=== PATIENT | male | born 1975 | race Caucasian/White ===

== ENCOUNTER 2020-01-24 06:29 | Outpatient (REF) | payer BC, SELFPAY ==
[2020-01-24 12:06] LABS: Alanine Aminotransferase 16 U/L (0-40); Albumin Level 4.7 g/dL (3.5-5.0); Alkaline Phosphatase 64 U/L (39-117); Anion Gap 11 (12-20); Aspartate Amino Transferase 17 U/L (5-37); Bilirubin Total 0.5 mg/dL (0.0-1.0); Blood Urea Nitrogen 18 mg/dL (9-16); Calcium 9.2 mg/dL (8.4-10.2); Carbon Dioxide 25 mmol/L (22-29); Chloride 106 mmol/L (96-108); Cholesterol 160 mg/dL; Estimated Glomerular Filt Rate > 60; Glucose Fasting 97 mg/dL (60-99); HDL Cholesterol 48 mg/dL; LDL Cholesterol Calculated 94 mg/dl; Potassium 5.1 mmol/l (3.3-5.1); Sodium 137 mmol/L (135-145); Total Protein 7.2 g/dL (6.5-8.0); Triglycerides 94 mg/dL
[2020-01-24 12:12] LABS: Free T4 (Free Thyroxine) 1.32 ng/dL (0.71-1.85); Thyroid Stimulating Hormone 0.91 mIU/mL (0.32-4.0)
[2020-01-24 12:13] LABS: Glucose Urine UA NEG (NEG); Leukocyte Esterase Urine NEG (NEG); Nitrite Urine NEG (NEG); Specific Gravity - Urine 1.015 (1.005-1.025); Urine Blood NEG (NEG); Urine Ketones NEG (NEG); Urine Protein NEG (NEG-TRACE)
[2020-01-24 12:32] LABS: Appearance Urine CLEAR; Color Urine YELLOW
== END 2020-01-24 06:30 | disposition home or self-care (01) ==
LOC: HO.HMGCLDS 06:29
PROVIDERS: PCP Internal Medicine; Visit Provider Internal Medicine
DX: E03.9 Hypothyroidism, unspecified (principal)
CPT/HCPCS: 36415; 80053; 80061; 81003; 84439; 84443

== ENCOUNTER 2020-03-03 15:59 | Outpatient (REF) | payer BC, SELFPAY ==
--- NOTE | 2020-03-03 16:06 | US_ITS ---
EXAMINATION: US VENOUS ULTRASOUND WITH DOPPLER LOWER EXTREMITY, RIGHT CLINICAL INFORMATION: Pain COMPARISON: None TECHNIQUE: Ultrasound of the deep veins is performed from the hip to the calf with compression sonography and color and pulse Doppler assessment. Spectral analysis with color-flow imaging is performed. FINDINGS: There is normal venous compression and respiratory variation and augmented flow. The visualized common femoral vein, superficial femoral vein, profunda femoral vein, popliteal vein, and the trifurcation region shows no evidence of deep venous thrombosis. There is no significant popliteal fossa cyst. US/US venous duplex LE RT IMPRESSION: No DVT demonstrated in the right lower extremity.
== END 2020-03-03 16:00 | disposition home or self-care (01) ==
LOC: HO.US 15:59
PROVIDERS: PCP Internal Medicine; Visit Provider Internal Medicine
DX: M79.661 Pain in right lower leg (principal)
CPT/HCPCS: 93971

== ENCOUNTER 2021-01-31 06:01 | Outpatient (REF) | payer BC, SELFPAY ==
[2021-01-31 11:34] LABS: Appearance Urine CLEAR; Color Urine YELLOW; Glucose Urine UA NEG (NEG); Leukocyte Esterase Urine NEG (NEG); Nitrite Urine NEG (NEG); Urine Blood NEG (NEG); Urine Ketones NEG (NEG); Urine Protein NEG (NEG-TRACE)
[2021-01-31 11:39] LABS: MANUAL DIFF FLAG NO
[2021-01-31 11:47] LABS: Basophils Percent Auto 0.7 % (0-2); Eosinophils Absolute Auto 0.1 X10*3/uL (0.0-0.4); Eosinophils Percent Auto 2.3 % (0-4); Hematocrit 42.3 % (42-52); Hemoglobin 14.3 g/dl (14.0-18.0); Imm Gran Abs Auto 0.01 X10*3/uL (0.00-0.03); Imm Gran Pct Auto 0.2 % (0.0-0.4); Lymphocytes Absolute Auto 1.7 X10*3/uL (1.2-4.9); Lymphocytes Percent Auto 39.4 % (20-40); Mean Corpuscular HGB Conc 33.8 g/dl (31.0-36.0); Mean Corpuscular Hemoglobin 30.1 pg (27.0-33.0); Mean Corpuscular Volume 89.1 fL (80-98); Mean Platelet Volume 10.2 fL (9.4-12.4); Monocytes Absolute Auto 0.4 X10*3/uL (0.1-1.2); Monocytes Percent Auto 9.5 % (2-11); Neutrophils Absolute Auto 2.1 X10*3/uL (2.0-8.3); Neutrophils Percent Auto 47.9 % (45-73); Platelet Count 221 X10*3/uL (160-400); Red Blood Count 4.75 X10*6/uL (4.60-5.80); Red Cell Distribution Width 12.3 % (11.0-16.0); White Blood Count 4.4 X10*3/uL (4.8-10.8)
[2021-01-31 11:57] LABS: Alanine Aminotransferase 15 U/L (0-40); Albumin Level 4.6 g/dL (3.5-5.0); Alkaline Phosphatase 55 U/L (39-117); Anion Gap 12 (12-20); Aspartate Amino Transferase 15 U/L (5-37); Bilirubin Total 0.5 mg/dL (0.0-1.0); Blood Urea Nitrogen 15 mg/dL (9-16); Calcium 9.8 mg/dL (8.4-10.2); Carbon Dioxide 27 mmol/L (22-29); Chloride 106 mmol/L (96-108); Cholesterol 177 mg/dL; Estimated Glomerular Filt Rate > 60; Glucose Fasting 100 mg/dL (60-99); HDL Cholesterol 45 mg/dL; LDL Cholesterol Calculated 114 mg/dl; Potassium 4.9 mmol/L (3.3-5.1); Sodium 140 mmol/L (135-145); Total Protein 7.2 g/dL (6.5-8.0); Triglycerides 93 mg/dL
[2021-01-31 12:18] LABS: Thyroid Stimulating Hormone 1.19 uIU/mL (0.32-4.0)
== END 2021-01-31 06:02 | disposition home or self-care (01) ==
LOC: HO.HMGCLDS 06:01
PROVIDERS: PCP Internal Medicine; Visit Provider Internal Medicine
DX: Z00.00 Encounter for general adult medical examination without abnormal findings (principal); E03.9 Hypothyroidism, unspecified; I10 Essential (primary) hypertension
CPT/HCPCS: 36415; 80053; 80061; 81003; 84443; 85025

== ENCOUNTER 2021-05-08 14:10 | Outpatient (REF) | payer BC, SELFPAY ==
[2021-05-08 16:41] LABS: Appearance Urine CLEAR; Color Urine YELLOW; Glucose Urine UA NEG (NEG); Leukocyte Esterase Urine NEG (NEG); Nitrite Urine NEG (NEG); Urine Blood NEG (NEG); Urine Ketones NEG (NEG); Urine Protein NEG (NEG-TRACE)
[2021-05-08 16:47] LABS: RBC Urine 0 /HPF (0); Squamous Epithelial Cell Urine TRACE /LPF; WBC Urine 0 /HPF (0-4)
[2021-05-08 16:48] LABS: Mucus Urine TRACE /LPF
[2021-05-08 16:53] LABS: Anion Gap 13 (12-20); Blood Urea Nitrogen 19 mg/dL (9-16); Calcium 9.9 mg/dL (8.4-10.2); Carbon Dioxide 25 mmol/L (22-29); Chloride 107 mmol/L (96-108); Estimated Glomerular Filt Rate > 60; Glucose Random 86 mg/dL (60-115); Potassium 4.9 mmol/L (3.3-5.1); Sodium 140 mmol/L (135-145)
[2021-05-08 17:15] LABS: Prostate Specific Antigen Scr 1.15 ng/mL (<0.05-4.0)
== END 2021-05-08 14:11 | disposition home or self-care (01) ==
LOC: HO.HMGCLDS 14:10
PROVIDERS: PCP Internal Medicine; Visit Provider Internal Medicine
DX: Z12.5 Encounter for screening for malignant neoplasm of prostate (principal); R35.0 Frequency of micturition; E03.9 Hypothyroidism, unspecified; I10 Essential (primary) hypertension
CPT/HCPCS: 36415; 80048; 81001; 84153

== ENCOUNTER 2021-05-08 14:51 | Outpatient (REF) | payer BC, SELFPAY | END 2021-05-08 14:52 | disposition home or self-care (01) | LOC: HO.US 14:51 | PROVIDERS: PCP Internal Medicine; Visit Provider Internal Medicine | DX: Z13.89 Encounter for screening for other disorder (principal) ==

== ENCOUNTER 2021-07-30 09:37 | Outpatient (REF) | payer BC, SELFPAY ==
--- NOTE | ~2021-07-30 | XR_ITS ---
EXAMINATION: RIGHT WRIST X-RAY CLINICAL INFORMATION: Sprain COMPARISON: None TECHNIQUE: 4 views of the right wrist FINDINGS: Bone alignment is normal. No fracture or dislocation is seen. Joint spaces are normal. Soft tissues are normal. XR/XR wrist RT w scaphoid IMPRESSION: Unremarkable exam.
== END 2021-07-30 09:38 | disposition home or self-care (01) ==
LOC: HO.HMGCX 09:37
PROVIDERS: Visit Provider Internal Medicine
DX: S63.501D Unspecified sprain of right wrist, subsequent encounter (principal)
CPT/HCPCS: 73110

== ENCOUNTER 2021-08-08 09:15 | Outpatient (REF) | payer BC, SELFPAY ==
--- NOTE | ~2021-08-08 | US_ITS ---
EXAMINATION: US PELVIS LIMITED (BLADDER) CLINICAL INFORMATION: Increased frequency of micturition, rule out urinary retention. COMPARISON: None TECHNIQUE: Real-time imaging of the bladder. FINDINGS: BLADDER: Well distended and normal. Bilateral ureteral jets are demonstrated. Prevoid bladder volume is 683 mL. Postvoid bladder volume is 232 mL. PROSTATE: 32 mL. US/US bladder IMPRESSION: 1. Moderate post void residual volume in the urinary bladder without focal abnormality. 2. Mild prostatomegaly.
== END 2021-08-08 09:16 | disposition home or self-care (01) ==
LOC: HO.HMGCX 09:15
PROVIDERS: PCP Internal Medicine; Visit Provider Internal Medicine
DX: R35.0 Frequency of micturition (principal)
CPT/HCPCS: 76857

== ENCOUNTER 2022-05-28 06:01 | Outpatient (REF) | payer BC, SELFPAY ==
[2022-05-28 11:27] LABS: MANUAL DIFF FLAG NO
[2022-05-28 11:37] LABS: Basophils Percent Auto 0.5 % (0-2); Eosinophils Absolute Auto 0.1 X10*3/uL (0.0-0.4); Eosinophils Percent Auto 2.4 % (0-4); Hematocrit 43.9 % (42.0-52.0); Hemoglobin 14.7 g/dl (14.0-18.0); Imm Gran Abs Auto 0.01 X10*3/uL (0.00-0.03); Imm Gran Pct Auto 0.2 % (0.0-0.4); Lymphocytes Absolute Auto 1.6 X10*3/uL (1.2-4.9); Mean Corpuscular HGB Conc 33.5 g/dl (31.0-36.0); Mean Corpuscular Hemoglobin 30.1 pg (27.0-33.0); Mean Corpuscular Volume 89.8 fL (80.0-98.0); Mean Platelet Volume 10.1 fL (9.4-12.4); Monocytes Absolute Auto 0.5 X10*3/uL (0.1-1.2); Neutrophils Percent Auto 46.9 % (45-73); Platelet Count 227 X10*3/uL (160-400); Red Blood Count 4.89 X10*6/uL (4.60-5.80); Red Cell Distribution Width 11.9 % (11.0-16.0); White Blood Count 4.2 X10*3/uL (4.8-10.8)
[2022-05-28 12:09] LABS: Alanine Aminotransferase 17 U/L (0-40); Albumin Level 4.6 g/dL (3.5-5.0); Alkaline Phosphatase 58 U/L (39-117); Anion Gap 17 (12-20); Aspartate Amino Transferase 16 U/L (5-37); Bilirubin Total 0.8 mg/dL (0.0-1.0); Blood Urea Nitrogen 16 mg/dL (9-16); Calcium 9.8 mg/dL (8.4-10.2); Carbon Dioxide 22 mmol/L (22-29); Chloride 106 mmol/L (96-108); Cholesterol 191 mg/dL; Estimated Glomerular Filt Rate > 60; Glucose Fasting 107 mg/dL (60-99); HDL Cholesterol 49 mg/dL; LDL Cholesterol Calculated 120 mg/dl; Potassium 4.5 mmol/L (3.3-5.1); Sodium 140 mmol/L (135-145); TSH reflex Free T4 0.01 uIU/mL (0.32-4.0); Total Protein 7.2 g/dL (6.5-8.0); Triglycerides 110 mg/dL
[2022-05-28 12:53] LABS: Free T4 (Free Thyroxine) 1.57 ng/dL (0.71-1.85)
== END 2022-05-28 06:02 | disposition home or self-care (01) ==
LOC: HO.HMGCLDS 06:01
PROVIDERS: PCP Internal Medicine; Visit Provider Internal Medicine
DX: Z00.00 Encounter for general adult medical examination without abnormal findings (principal); I10 Essential (primary) hypertension; E03.9 Hypothyroidism, unspecified
CPT/HCPCS: 36415; 80053; 80061; 84439; 84443; 85025

== ENCOUNTER → 2022-07-18 10:24 | Outpatient (BNVA) | payer BC, SELFPAY | PROVIDERS: PCP Internal Medicine; Visit Provider Urology | DX: N52.9 Male erectile dysfunction, unspecified (principal) | CPT/HCPCS: 51798 ==

== ENCOUNTER 2022-08-07 10:41 | Outpatient (REF) | payer BC, SELFPAY ==
[2022-08-07 15:32] LABS: TSH reflex Free T4 0.12 uIU/mL (0.32-4.0)
[2022-08-07 16:31] LABS: Free T4 (Free Thyroxine) 1.21 ng/dL (0.71-1.85)
== END 2022-08-07 10:42 | disposition home or self-care (01) ==
LOC: HO.HMGCLDS 10:41
PROVIDERS: PCP Internal Medicine; Visit Provider Internal Medicine
DX: E03.9 Hypothyroidism, unspecified (principal)
CPT/HCPCS: 36415; 84439; 84443

== ENCOUNTER → 2022-09-20 08:27 | Outpatient (BNVA) | payer BC, SELFPAY | PROVIDERS: PCP Internal Medicine; Visit Provider Urology ==

== ENCOUNTER 2022-12-04 12:42 | Outpatient (REF) | payer BC, SELFPAY ==
[2022-12-04 16:41] LABS: TSH reflex Free T4 0.67 uIU/mL (0.32-4.0)
== END 2022-12-04 12:43 | disposition home or self-care (01) ==
LOC: HO.HMGCLDS 12:42
PROVIDERS: PCP Internal Medicine; Visit Provider Internal Medicine
DX: E03.9 Hypothyroidism, unspecified (principal)
CPT/HCPCS: 36415; 84443

== ENCOUNTER 2022-12-13 13:52 | Day surgery (SDC) | payer BC, SELFPAY ==
--- NOTE | 2022-12-12 09:38 | HO.ANESPROP2 ---
Documented by User: Carolina Barrow NP 12/12/22 09:44 HPI - Anesthesia Eval Consult details Narrative: 47yo M for Colonoscopy PMFSH Active Problems Active Problems: All Active Problems (Updated 06/18/22 @ 11:35 by Chichi Ngo MD) Erectile dysfunction (Acute) Urinary retention (Acute) Sprain of right wrist (Acute) Increased frequency of urination (Acute) Right calf pain (Acute) Annual physical exam (Acute) HTN (hypertension) (Acute) Hypothyroid (Acute) Past Medical History Medical History Annual physical exam GERD (gastroesophageal reflux disease) H/O exercise stress test Nadya's disease HTN (hypertension) Hypothyroid Increased frequency of urination Right calf pain Urinary retention Family History Family History Father No problems noted. Mother No problems noted. 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 Tobacco Use Status: Former Tobacco user e-Cigarette/Vaping Use: Never Used Are you DNR?: No Advance Directives: No Advance Directives Information Provided: Yes Nutrition Risks: No Nutritional Risk Current occupational status: employed Cognitive needs: No Hearing needs: No Vision needs: Yes Meds Allergies Allergy/AdvReac Type Severity Reaction Status Date / Time valsartan Allergy Unknown headache Verified 09/20/22 08:28 Home Medications Medication Instructions Recorded Confirmed Last Taken Type ibuprofen 200 mg tablet 200 mg PO Q6H PRN 10/24/21 06/18/22 Unknown History Exam Exam Date and Time: December 12, 2022 0938 Assessment and Plan Assessment Anesthesia Assessment: Chart Reviewed Documented by User: Angelica Bowens MD 12/13/22 14:35 PMFSH Past Medical History Medical History Annual physical exam GERD (gastroesophageal reflux disease) H/O exercise stress test Nadya's disease HTN (hypertension) Hypothyroid Increased frequency of urination Right calf pain Urinary retention Family History Family History Father No problems noted. Mother No problems noted. 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 Tobacco Use Status: Former Tobacco user e-Cigarette/Vaping Use: Never Used Are you DNR?: No Advance Directives: No Advance Directives Information Provided: Yes Nutrition Risks: No Nutritional Risk Current occupational status: employed Cognitive needs: No Hearing needs: No Vision needs: Yes Meds Allergies Allergy/AdvReac Type Severity Reaction Status Date / Time valsartan Allergy Unknown headache Verified 09/20/22 08:28 Home Medications Medication Instructions Recorded Confirmed Last Taken Type ibuprofen 200 mg tablet 200 mg PO Q6H PRN 10/24/21 06/18/22 Unknown History Exam Airway Mallampati Class: II TM Dist: >3cm Neck ROM: Full Heart: rrr Lungs: cta Assessment and Plan Assessment Anesthesia Assessment: Anesthesia Plan Discussed Final Anesthetic Review Family History of Problems with Anesthesia: No History of Problems with Anesthesia: No NPO: Yes ASA Class: II Final Preanesthetic Review: No Changes in Pt Med Stat, Meds/Allgs Chart Reviewed and Consent Obtained/Reviewed Patient Risk: Intermediate Procedure Risk: Intermediate Anesthetic Plan Anesthetic Plan: MAC: Disposition: Standard PACU
[2022-12-13 14:13] VITALS: BMI 25.1
[2022-12-13 14:20] VITALS: BP 139/95; PULSE 61; RESP 20; TEMP 36.1; O2SAT 98
[2022-12-13] MEDS: Lactated Ringers 1,000 ML 100 ML IVCONT (14:39)
--- NOTE | 2022-12-13 15:39 | MHC.SHP ---
Pre-Procedural Eval Section A Date of Service: 12/13/22 The patient is an INPATIENT: No The History & Physical has been completed within 30 days and I have reviewed it.: No Section B Chief Complaint: Encounter for screening for malignant neoplasm Relevant Family History (Specify if Yes): Yes Relevant Social History: Tobacco Use (former smoker) Present Medications: see Short Stay Collaborative assessment Medical History: Significant History (Erectile dysfunction (Acute) Urinary retention (Acute) Sprain of right wrist (Acute) Increased frequency of urination (Acute) Right calf pain (Acute) Annual physical exam (Acute) HTN (hypertension) (Acute) Hypothyroid (Acute)) History of Previous Operations: Relevant previous surgery/procedure and date(s) (History of fracture of femur History of open reduction and internal fixation (ORIF) procedure) Allergies: Allergies Allergy/AdvReac Type Severity Reaction Status Date / Time valsartan Allergy Unknown headache Verified 09/20/22 08:28 Review of Systems Sugical H&P ROS: Negative: Constitution, Cardiovascular, Respiratory and Gastrointestinal and Yes, Specify: Endocrine (Thyroid disease) Exam Surgical H&P Exam: Normal: Heart, Normal: Lungs, Normal: Extremities and Normal: Abdomen Plan Diagnosis/Plan: Change (proceed with screening colonoscopy) I have reviewed the history and physical and performed a pertinent physical examination on my patient. No changes have occurred unless specified. Time Spent With Patient Time: Total time managing care of this patient today ____ minutes.
--- NOTE | 2022-12-13 16:23 | W.PM.OPN ---
Operative Note Operative Note Date of Service: 12/13/22 Narrative: COLONOSCOPY TILL CECUM WITH BIOPSIES Pre-op diagnosis: Colon cancer screening, family history of colon cancer (paternal GF in his 60's) Pt had an EGd and colon 15-16 years ago Post-op diagnosis:? Colon polyp, diverticulosis, hemorrhoids Endoscopist:? Mikaela Zhang MD Anesthesia:?MAC Consent: Indications for the procedure and potential complications of bleeding, perforation, reaction to medications and missed diagnosis were discussed with the patient and informed consent was obtained. Instrument: Olympus CF H 190 L variable stiffness adult colonoscope Monitoring: Vital signs and clinical assessment, intermittent blood pressure monitoring, continuous EKG monitoring, Pulse oximetry and Carbon Dioxide monitoring were done throughout the procedure. Please see anesthesia flowsheet. Colon withdrawl time was 24 minutes. Procedure: The patient was placed in the left lateral decubitis position and pre-procedure medications were administered. After a digital rectal examination of the ano-rectum, the video colonoscope was inserted into the rectum and advanced through the colon to the cecum. The colonoscope was slowly withdrawn in a retrograde panoramic fashion and the colon mucosa was carefully examined including a retroflexed view of the rectum. Findings and interventions are described below. Procedure Difficulty: Without difficulty Findings: Terminal Ileum: Not evaluated Cecum: Normal Ascending Colon: A 2-3 mm sessile polyp in the mid AC -removed with a cold biopsy Transverse Colon: Normal Descending Colon: Normal Sigmoid Colon: Moderate diverticulosis Rectum: Normal Ano-rectum: Moderate internal hemorrhoids Colon preparation: Good Impression and Post Procedure Diagnosis: Colonoscopy Findings: One tiny polyp removed Moderate diverticulosis seen in the sigmoid colon Moderate hemorrhoids on retroflexed exam. Plan: I will send a letter with pathology results Repeat Colonoscopy interval based on path results - in 5 years if polyps are adenomatous and 10 years if polyps are hyperplastic. Above findings were reviewed with the patient and colon polyps and diverticulosis handouts were given in the discharge area
[2022-12-13 17:09] VITALS: BP 118/62; PULSE 53; RESP 16; TEMP 36.1; O2SAT 99
[2022-12-13 17:24] VITALS: BP 128/77; PULSE 50; RESP 16; TEMP 36.4; O2SAT 99
== END 2022-12-13 17:53 | disposition home or self-care (01) ==
PROVIDERS: PCP Internal Medicine; Visit Provider Internal Medicine Gastroenterology
PROC: 0DJD8ZZ Inspection of Lower Intestinal Tract, Via Natural or Artificial Opening Endoscopic (ICD-10-PCS; CPT 45378; principal; 2022-12-13 15:30)
DX: Z12.11 Encounter for screening for malignant neoplasm of colon (principal); D12.2 Benign neoplasm of ascending colon; K57.30 Diverticulosis of large intestine without perforation or abscess without bleeding; K64.8 Other hemorrhoids; I10 Essential (primary) hypertension; E03.9 Hypothyroidism, unspecified; R33.9 Retention of urine, unspecified; R35.0 Frequency of micturition; Z88.8 Allergy status to other drugs, medicaments and biological substances; Z87.891 Personal history of nicotine dependence; Z79.1 Long term (current) use of non-steroidal anti-inflammatories (NSAID)
CPT/HCPCS: 45380; 88305

== ENCOUNTER → 2022-12-13 13:52 | Outpatient (BNV) | payer BC, SELFPAY | PROVIDERS: PCP Internal Medicine; Visit Provider Internal Medicine Gastroenterology | DX: Z12.11 Encounter for screening for malignant neoplasm of colon (principal); Z80.0 Family history of malignant neoplasm of digestive organs; D12.2 Benign neoplasm of ascending colon; K57.30 Diverticulosis of large intestine without perforation or abscess without bleeding; K64.8 Other hemorrhoids | CPT/HCPCS: 45380 ==

== ENCOUNTER 2023-02-01 09:07 | Outpatient (AMB) | payer BC, SELFPAY ==
[2023-02-01 09:30] VITALS: BP 124/74; PULSE 92; O2SAT 98
--- NOTE | 2023-02-01 09:30 | MHC.OFFWIV ---
Intake Vital Signs 02/01/23 09:30 Height 61 ft Weight 198 lb BMI 0.3 BP 124/74 Blood Pressure Location Lt brachial Position Sitting Pulse 92 Pulse Source Pulse Oximeter Pulse Oximetry (%) 98 Oxygen Delivery Method Room Air Intake Visit Reasons: EP-Left hip pain Intake Note: Patient is here with pain in left hip in frot and back, not getting better. Patient Tobacco Use Status: Former Tobacco user Allergies valsartan Allergy (Unknown, Verified 02/01/23 09:32) headache Do you need a note to return to daycare/school/sports/work: No HPI HPI Comments History of Present Illness Details This is a 47-year-old male who presents to the office today for sick visit. Patient complaining of persistent left hip pain x4 weeks. Patient states he does not remember specific trauma or injury but believes that he may have pulled a muscle or twisted wrong. He denies any numbness/weakness/paresthesias into his left lower extremity. He denies any radiation of his pain. He states the pain is mostly brought on with ambulation and moving. He does not experience any hip pain while sitting and resting. [facility] Medical History Urinary retention Increased frequency of urination Right calf pain Annual physical exam HTN (hypertension) Hypothyroid H/O exercise stress test GERD (gastroesophageal reflux disease) Nadya's disease Surgical History (Updated 12/13/22 @ 14:27 by Roula Salas RN) Hx of appendectomy Hx of esophagogastroduodenoscopy Hx of colonoscopy Family History Father No problems noted. Mother No problems noted. 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 Tobacco Use Status: Former Tobacco user e-Cigarette/Vaping Use: Never Used Current occupational status: employed Cognitive needs: No Hearing needs: No Vision needs: Yes Review of Systems Const All systems reviewed & are unremarkable except as noted in HPI and below Reports no additional complaints Eyes Reports no additional complaints ENT Reports no additional complaints Card Reports no additional complaints Resp Reports no additional complaints GI Reports no additional complaints Reports no additional complaints Musc Reports no additional complaints Skin/Breast Reports system reviewed and no additional complaints, except as documented Neuro Reports no additional complaints Psych Reports no additional complaints Endo Reports no additional complaints Eliecer/Lymph Reports no additional complaints Aller/Immun Reports no additional complaints Physical Exam Vital Signs: Last Vital Signs Pulse 92 02/01/23 09:30 BP 124/74 02/01/23 09:30 Pulse Ox 98 02/01/23 09:30 Oxygen Delivery Method Room Air 02/01/23 09:30 BMI result Body Mass Index 0.3 Const Other: Vital signs reviewed. Constitutional: Non-toxic appearing. No acute distress. Well-developed and well-nourished. HEENT: Normocephalic and atraumatic. Skin: Warm and dry. No rashes or lesions noted. Neck: Full and painless range of motion. No cervical lymphadenopathy. Cardio: Regular rate. No lower extremity edema. No JVD. Pulmonary: No respiratory distress. No accessory muscle usage. Gastrointestinal: Soft, nontender, and nondistended in all 4 quadrants. Musculoskeletal: Normal range of motion in joints throughout the body. No deformity or other signs of injury. Full and painless range of motion of the left hip. No tenderness to palpation of the left hip. Neuro: Alert and oriented x4. Cranial nerves 2-12 grossly intact. No focal deficits appreciated. Psych: Normal mood and affect. Assessment & Plan Assessment & Plan (1) Sprain of left hip: Code(s): S73.102A - Unspecified sprain of left hip, initial encounter Plan: This is a 47-year-old male presenting to the office complaining of persistent left hip pain x4 weeks. Patient does not remember specific trauma or injury but believes he may have pulled a muscle or twisted wrong. On physical examination, patient has no bony tenderness to palpation of the left hip and no pain with range of motion of the left hip. He states the pain is mostly brought on after several minutes of activity. He is currently asymptomatic without left hip pain. Patient very likely has a mild musculoskeletal sprain/strain of the left hip; very low suspicion for fracture or avulsion fracture but we will check a left hip x-ray given persistence of pain. Recommend rest/activity modification, ice/heat to the area, and continue with acetaminophen/ibuprofen for pain management as long as patient has no medical contraindications. Patient sent home on 5% lidocaine patches. He was given a physical therapy referral. Patient advised to follow-up here or go to the emergency room for persistent/worsening symptoms. Patient verbalized understanding and is agreeable with the plan. Orders: Orders XR hip LT min 2V Today M25.552 - Pain in left hip Coding Level of Care Code Est Pt Level 3 (77640) Diagnoses Sprain of left hip S73.102A
== END 2023-02-01 10:01 | disposition home or self-care (01) ==
PROVIDERS: PCP Internal Medicine; Visit Provider Physician Assistant Medical
DX: S73.102A Unspecified sprain of left hip, initial encounter (principal)
CPT/HCPCS: 99213

== ENCOUNTER 2023-02-01 09:49 | Outpatient (REF) | payer BC, SELFPAY ==
--- NOTE | ~2023-02-01 | XR_ITS ---
EXAMINATION: XR HIP, LEFT , CLINICAL INFORMATION: Pain COMPARISON: Prior study 2019 TECHNIQUE: 2 views frontal and oblique , FINDINGS: There is no evidence of acute fracture or dislocation. There are mild degenerative arthritic changes of the hip evident by sclerotic changes of the acetabular roof and narrowing of the joint space. Mild degenerative changes of the symphysis pubis. Mild degenerative changes of the SI joints. Adjacent pubic rami are intact. Surrounding soft tissues are unremarkable. XR/XR hip LT min 2V IMPRESSION: Mild degenerative arthritis. .
== END 2023-02-01 09:50 | disposition home or self-care (01) ==
LOC: HO.HMGCX 09:49
PROVIDERS: Visit Provider Physician Assistant Medical
DX: M25.552 Pain in left hip (principal)
CPT/HCPCS: 73502

== ENCOUNTER 2023-06-12 06:04 | Outpatient (REF) | payer BC, SELFPAY ==
[2023-06-12 11:18] LABS: MANUAL DIFF FLAG NO
[2023-06-12 11:37] LABS: Basophils Percent Auto 0.9 % (0-2); Eosinophils Absolute Auto 0.1 X10*3/uL (0.0-0.4); Eosinophils Percent Auto 2.3 % (0-4); Hematocrit 42.3 % (42.0-52.0); Hemoglobin 14.2 g/dl (14.0-18.0); Imm Gran Abs Auto 0.01 X10*3/uL (0.00-0.03); Imm Gran Pct Auto 0.3 % (0.0-0.4); Lymphocytes Absolute Auto 1.5 X10*3/uL (1.2-4.9); Lymphocytes Percent Auto 42.7 % (20-40); Mean Corpuscular HGB Conc 33.6 g/dl (31.0-36.0); Mean Corpuscular Hemoglobin 30.3 pg (27.0-33.0); Mean Corpuscular Volume 90.2 fL (80.0-98.0); Mean Platelet Volume 10.1 fL (9.4-12.4); Monocytes Absolute Auto 0.4 X10*3/uL (0.1-1.2); Monocytes Percent Auto 10.8 % (2-11); Neutrophils Absolute Auto 1.5 x10*3/uL (2.0-8.3); Platelet Count 192 X10*3/uL (160-400); Red Blood Count 4.69 X10*6/uL (4.60-5.80); Red Cell Distribution Width 12.4 % (11.0-16.0); White Blood Count 3.5 X10*3/uL (4.8-10.8)
[2023-06-12 12:04] LABS: Alanine Aminotransferase 17 U/L (0-40); Albumin Level 4.5 g/dL (3.5-5.0); Alkaline Phosphatase 52 U/L (39-117); Anion Gap 12 (12-20); Aspartate Amino Transferase 18 U/L (5-37); Bilirubin Total 0.6 mg/dL (0.0-1.0); Blood Urea Nitrogen 14 mg/dL (9-16); Calcium 9.6 mg/dL (8.4-10.2); Carbon Dioxide 25 mmol/L (22-29); Chloride 107 mmol/L (96-108); Cholesterol 188 mg/dL (<200); Estimated Glomerular Filt Rate > 60; Glucose Fasting 96 mg/dL (60-99); HDL Cholesterol 49 mg/dL (>40); LDL Cholesterol Calculated 122 mg/dL (<100); Potassium 4.4 mmol/L (3.3-5.1); Sodium 140 mmol/L (135-145); Total Protein 7.3 g/dL (6.5-8.0); Triglycerides 88 mg/dL (<150)
[2023-06-12 12:08] LABS: TSH reflex Free T4 1.24 uIU/mL (0.32-4.0)
== END 2023-06-12 06:05 | disposition home or self-care (01) ==
LOC: HO.HMGCLDS 06:04
PROVIDERS: PCP Internal Medicine; Visit Provider Internal Medicine
DX: Z00.00 Encounter for general adult medical examination without abnormal findings (principal); I10 Essential (primary) hypertension; E03.9 Hypothyroidism, unspecified
CPT/HCPCS: 36415; 80053; 80061; 84443; 85025

== ENCOUNTER 2023-06-19 11:20 | Outpatient (AMB) | payer BC, SELFPAY ==
--- NOTE | 2023-06-19 11:24 | MHC.PC.OV ---
Vital Signs 06/19/23 11:25 Height 6 ft Weight 201 lb BMI 27.3 BP 126/74 Blood Pressure Location Lt brachial Position Sitting Pulse 69 Pulse Source Pulse Oximeter Pulse Oximetry (%) 99 Oxygen Delivery Method Room Air Intake Visit Reasons: Annual PE Intake Note: Pt is here today for PE. Allergies valsartan Allergy (Unknown, Verified 06/19/23 11:26) headache Medication List - Last Reconciled 06/19/23 by Chichi Ngo MD amlodipine 10 mg PO DAILY ibuprofen 200 mg PO Q6H PRN levothyroxine 112 mcg PO DAILY tadalafil 5 mg PO DAILY 90 days Tobacco use date assessed: 06/19/23 Dental Screening Dental Screen Date: 06/19/23 Did you have a dental visit in the last 12 months?: Yes Did you have a dental problem in the last 6 months where you did not have access to dental care?: No Was dental information given to patient?: Patient has dentist HPI Annual PE HPI Details Patient presents for PE. PFSH Medical History Urinary retention Increased frequency of urination Right calf pain Annual physical exam HTN (hypertension) Hypothyroid H/O exercise stress test GERD (gastroesophageal reflux disease) Nadya's disease Surgical History (Updated 06/19/23 @ 12:20 by Chichi Ngo MD) Hx of appendectomy Hx of esophagogastroduodenoscopy Hx of colonoscopy Family History Father No problems noted. Mother No problems noted. 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 Tobacco Use Status: Former Tobacco user e-Cigarette/Vaping Use: Never Used Current occupational status: employed Cognitive needs: No Hearing needs: No Vision needs: Yes Questionnaire Thrive Questionnaire Date Thrive assessed: 06/18/22 I am a: Patient What is your living situation today?: I have a steady place to live Within the past 12 months, did the food you bought not last and you didn't have the money to get more?: Never true Within the past 12 months, did you worry whether your food would run out before you got money to buy more?: Never true THRIVE Score: 0 AUDIT C Alcohol Use Questionnaire (AUDIT-C) 1. How often do you have a drink containing alcohol?: 2-4 times a month 2. How many drinks containing alcohol do you have on a typical day when you are drinking?: 1 or 2 3. How often do you have six or more drinks on one occasion?: Never Total Score: 2 YIN-7 AMB Questionnaire YIN-7 Date YIN - 7 assessed: 06/18/22 Feeling nervous, anxious, or on edge: 1 = Several days Not being able to stop or control worryin = More than half the days Worrying too much about different things: 2 = More than half the days Trouble relaxin = Several days Being so restless that it is hard to sit still: 1 = Several days Becoming easily annoyed or irritable: 1 = Several days Feeling afraid as if something awful might happen: 1 = Several days Total YIN-7 score (0-4 normal; 5-9 mild; 10-14 moderate; 15-21 severe): 9 Source: Developed by Drs. Zeb Ledesma, Aicha Freeman, Jad Irving and colleagues, with an educational di from [employer]. Review of Systems Const All systems reviewed & are unremarkable except as noted in HPI and below Reports no additional complaints Eyes Reports no additional complaints ENT Reports no additional complaints Card Reports no additional complaints Resp Reports no additional complaints GI Reports no additional complaints Reports no additional complaints Physical exam (Primary Care) Vital Signs: Last Vital Signs Pulse 69 06/19/23 11:25 BP 126/74 06/19/23 11:25 Pulse Ox 99 06/19/23 11:25 Oxygen Delivery Method Room Air 06/19/23 11:25 BMI result Body Mass Index 27.3 Tobacco/Smoking Status: Tobacco use Status Tobacco use date assessed 06/19/23 06/19/23 11:29 Patient Tobacco Use Status Former Tobacco user 06/19/23 11:29 e-Cigarette/Vaping Use Never Used 06/19/23 11:29 Thrive Assessment: Date of Thrive Assessment Date Thrive assessed 06/18/22 06/19/23 11:29 Const General: no acute distress HENMT Head: Yes normal to inspection Ears: hearing grossly normal bilaterally General nose exam: Normal external nose present Face and sinus: Yes normal facial exam Mouth: Normal oral and palatal mucosa present Eyes General: appearance normal, both eyes and all related structures Neck Neck: Yes no lymphadenopathy and Yes supple Resp Effort & Inspection: normal respiratory effort Auscultation: clear to auscultation bilaterally Cardio Rhythm: regular rhythm Heart sounds: S1 normal heart sound present and S2 normal heart sound present GI Inspection: Yes normal to inspection Palpation (GI): Soft to palpation Percussion: Yes normal to percussion Auscultation: normal bowel sounds Assessment and Plan Assessment & Plan (1) Annual physical exam: Code(s): Z00.00 - Encounter for general adult medical examination without abnormal findings Plan: Well-balanced diet regular exercise discussed with the patient. He had colonoscopy last November and needs a repeat one in 5 years (2) HTN (hypertension): Code(s): I10 - Essential (primary) hypertension Plan: Continue amlodipine (3) Hypothyroid: Code(s): E03.9 - Hypothyroidism, unspecified Plan: Continue Levothyroxine (4) Hx of colonoscopy: Comment: 12/11 1 polyp tubular adenoma, recheck 5 yrs, Dr. Zhang Code(s): Z98.890 - Other specified postprocedural states Orders: Orders Lipid Panel 365 Days E03.9 - Hypothyroidism, unspecified, I10 - Essential (primary) hypertension, Z00.00 - Encounter for general adult medical examination without abnormal findings UA w Microscopic 365 Days E03.9 - Hypothyroidism, unspecified, I10 - Essential (primary) hypertension, Z00.00 - Encounter for general adult medical examination without abnormal findings Comprehensive [place]. Panel Fast 365 Days E03.9 - Hypothyroidism, unspecified, I10 - Essential (primary) hypertension, Z00.00 - Encounter for general adult medical examination without abnormal findings Complete Blood Count Auto Diff 365 Days E03.9 - Hypothyroidism, unspecified, I10 - Essential (primary) hypertension, Z00.00 - Encounter for general adult medical examination without abnormal findings PSA,Total (Free>4and<10) 365 Days E03.9 - Hypothyroidism, unspecified, I10 - Essential (primary) hypertension, Z00.00 - Encounter for general adult medical examination without abnormal findings Medications: Refilled levothyroxine 112 mcg PO DAILY 90 tabs 3RF Coding Level of Care Code Est Pt Prev Care 40-64y(29988) Diagnoses Annual physical exam Z00.00 HTN (hypertension) I10 Hypothyroid E03.9 Hx of colonoscopy Z98.890
[2023-06-19 11:25] VITALS: BP 126/74; PULSE 69; O2SAT 99; BMI 27.3
== END 2023-06-19 12:13 | disposition home or self-care (01) ==
PROVIDERS: PCP Internal Medicine; Visit Provider Internal Medicine
DX: Z00.00 Encounter for general adult medical examination without abnormal findings (principal); I10 Essential (primary) hypertension; E03.9 Hypothyroidism, unspecified; Z98.890 Other specified postprocedural states
CPT/HCPCS: 99396

== ENCOUNTER 2023-08-04 08:15 | Outpatient (AMB) | payer BC, SELFPAY ==
[2023-08-04 08:26] VITALS: BP 128/80; PULSE 64; TEMP 36.7; O2SAT 99; BMI 27.5
--- NOTE | 2023-08-04 08:26 | MHC.OFFWIV ---
Intake Vital Signs 08/04/23 08:26 Height 6 ft Weight 203 lb BMI 27.5 BP 128/80 Blood Pressure Location Lt brachial Position Sitting Pulse 64 Pulse Source Pulse Oximeter Temp 98.1 F Temp Source Oral Pulse Oximetry (%) 99 Oxygen Delivery Method Room Air Intake Visit Reasons: EP pain both calves (lobby) Intake Note: pt is here for pain in both calfs for a few months unsure the reason Patient Tobacco Use Status: Former Tobacco user Allergies valsartan Allergy (Unknown, Verified 08/04/23 08:28) headache Do you need a note to return to daycare/school/sports/work: No HPI HPI Comments History of Present Illness Details 48 y/o male patient who presents to walk in clinic with c/o bilateral calves pain for months now. Pt is very active, runs, hikes and rides bicycles daily. He has noticed the pain after exercises. Tried OTC remedies with no much relief. PFSH Medical History Urinary retention Increased frequency of urination Right calf pain Annual physical exam HTN (hypertension) Hypothyroid H/O exercise stress test GERD (gastroesophageal reflux disease) Nadya's disease Surgical History (Updated 06/19/23 @ 12:20 by Chichi Ngo MD) Hx of appendectomy Hx of esophagogastroduodenoscopy Hx of colonoscopy Family History Father No problems noted. Mother No problems noted. 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 Tobacco Use Status: Former Tobacco user e-Cigarette/Vaping Use: Never Used Current occupational status: employed Cognitive needs: No Hearing needs: No Vision needs: Yes Review of Systems Const All systems reviewed & are unremarkable except as noted in HPI and below Physical Exam Vital Signs: Last Vital Signs Temp 98.1 F 08/04/23 08:26 Pulse 64 08/04/23 08:26 BP 128/80 08/04/23 08:26 Pulse Ox 99 08/04/23 08:26 Oxygen Delivery Method Room Air 08/04/23 08:26 BMI result Body Mass Index 27.5 Const General: comfortable and no acute distress Orientation/consciousness: patient oriented x3 Neuro General: patient oriented x3 Extrem Right lower extremity: normal to inspection, full ROM, edema and lower leg Details: no edema; no erythema, no tenderness and no ecchymosis Left lower extremity: normal to inspection, full ROM, edema and lower leg Details: no edema; no erythema, no tenderness and no ecchymosis Assessment & Plan Assessment & Plan (1) Bilateral calf pain: Code(s): M79.661 - Pain in right lower leg; M79.662 - Pain in left lower leg Plan: - Home pain remedies - Rest - IceHot - If pain continues f/u with PCP. Coding Level of Care Code Est Pt Level 3 (88117) Diagnoses Bilateral calf pain M79.661; M79.662 Time Spent (min) 15
== END 2023-08-04 09:10 | disposition home or self-care (01) ==
PROVIDERS: PCP Internal Medicine; Visit Provider Nurse Practitioner Family
DX: M79.661 Pain in right lower leg (principal); M79.662 Pain in left lower leg
CPT/HCPCS: 99213

== ENCOUNTER 2023-08-08 08:49 | Outpatient (AMB) | payer BC, SELFPAY ==
--- NOTE | 2023-08-08 08:56 | MHC.OFFVIS ---
Intake Visit Reasons: 6M Follow Up(confirmed) Intake Note: Patient is Present for Follow Up Urology Medication: Tadalafil Antibiotic Allergies: None Blood Thinners:None Allergies valsartan Allergy (Unknown, Verified 08/08/23 08:56) headache HPI Comments Details: Anupam is a pleasant male. He is a patient Dr. Ngo. He is seen for the following urologic conditions - erectile dysfunction Six-month follow-up Has been on every other day dosing lab low-dose tadalafil Working well 1 year follow-up Erectile dysfunction Progressive Minimal risk factors - hypertensive, hypothyroid - no evidence of dyslipidemia, triglycerides 110 BMI 26 PSA 1.1 Current therapy daily low-dose tadalafil with good effect PFSH Medical History Urinary retention Increased frequency of urination Right calf pain Annual physical exam HTN (hypertension) Hypothyroid H/O exercise stress test GERD (gastroesophageal reflux disease) Nadya's disease Surgical History Hx of appendectomy Hx of esophagogastroduodenoscopy Hx of colonoscopy Family History Father No problems noted. Mother No problems noted. 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 Patient Tobacco Use Status: Former Tobacco user e-Cigarette/Vaping Use: Never Used Current occupational status: employed Cognitive needs: No Hearing needs: No Vision needs: Yes Review of Systems Const Denies chills and Denies fever(s) Card Reports no additional complaints and Denies syncope Resp Denies cough GI Denies abdominal pain and Denies heartburn Reports as per HPI and Denies change in libido Neuro Denies syncope Psych Denies change in libido Endo Denies change in libido Physical Exam Const General: cooperative, healthy appearing, comfortable and no acute distress Orientation/consciousness: patient oriented x3 HEENT Face and sinus: Yes normal facial exam Mouth: moist mucous membranes Neck Neck: Yes normal visual inspection, Yes full ROM and Yes trachea midline Chest Chest palpation & inspection: normal inspection of the chest Resp Effort & Inspection: normal respiratory effort, able to speak in complete sentences and no respiratory distress GI Inspection: Yes normal to inspection Back/Spine/Pelvis Cervical Spine: normal cervical lordosis Thoracic/Lumbar Spine: thoracic and lumbar spine normal to inspection Skin General skin exam: no rashes or lesions noted Neuro General: patient oriented x3, gait normal, tone normal and moves all extremities Extrem General: Yes normal to inspection and Yes capillary refill normal Assessment & Plan Assessment & Plan (1) Erectile dysfunction: Code(s): N52.9 - Male erectile dysfunction, unspecified Category: Medical Plan 12 month follow-up Patient Instructions: Imaging studies, laboratory and physical exam results were discussed and reviewed in detail. No major barriers to patient understanding were identified. An opportunity to ask questions regarding the treatment plan was provided. All questions were answered. The patient expressed understanding and agreement with the above treatment plan. The patient is aware they should contact our office by phone for worsening of their current condition or the appearance of new urologic symptoms. Compliance is encouraged with any medications and followup testing that is ordered. It is a privilege to participate in the urologic care of your patient. If you have any questions or concerns regarding treatment for the above conditions, or other urologic issues, please do not hesitate to contact me. The office telephone contact is [phone]. This note is constructed using voice recognition software. While every effort has been made to ensure accuracy hot metal mixer operator helper errors may have been included. Yours sincerely, Dr Calvin Liz MD, [facility] - Urology Providers of Expert, Compassionate Care for the Genitourinary System
== END 2023-08-08 09:15 | disposition home or self-care (01) ==
PROVIDERS: PCP Internal Medicine; Visit Provider Urology
DX: N52.9 Male erectile dysfunction, unspecified (principal)
CPT/HCPCS: 99213

== ENCOUNTER → 2023-08-08 08:49 | Outpatient (BNVA) | payer BC, SELFPAY | PROVIDERS: PCP Internal Medicine; Visit Provider Urology ==

== ENCOUNTER 2023-09-04 09:14 | Outpatient (AMB) | payer BC, SELFPAY ==
--- NOTE | 2023-09-04 09:35 | MHC.PC.OV ---
Vital Signs 09/04/23 09:36 Height 6 ft Weight 205 lb BMI 27.8 BP 124/76 Blood Pressure Location Lt brachial Position Sitting Pulse 63 Pulse Source Pulse Oximeter Pulse Oximetry (%) 98 Oxygen Delivery Method Room Air Intake Visit Reasons: Pain in both calfs. Urgent care was unhelpful. Intake Note: Pt is here today for a sick visit. Pt c/o pain in his lower back and pain in both calfs. Allergies valsartan Allergy (Unknown, Verified 09/04/23 09:38) headache Medication List - Last Reconciled 09/04/23 by Chichi Ngo MD amlodipine 10 mg PO DAILY ibuprofen 200 mg PO Q6H PRN levothyroxine 112 mcg PO DAILY tadalafil 5 mg PO DAILY 90 days Tobacco use date assessed: 09/04/23 Dental Screening Dental Screen Date: 06/19/23 HPI Pain in both calfs. Urgent care was unhelpful. HPI Details Pt c/o bilateral calf pain worse in AM better as he keeps walking and moving during the day. Patient has this pain for many months. He stopped vigorous exercises like running or biking but it did not make a difference. Patient denies leg swelling joint pain claudication leg weakness numbness or tingling. He has a chronic lower back pain, unchanged for many years usually relieved with home stretching exercises. 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 Hypertension and hypothyroidism stable on current medications [facility] Medical History Urinary retention Increased frequency of urination Right calf pain Annual physical exam HTN (hypertension) Hypothyroid H/O exercise stress test GERD (gastroesophageal reflux disease) Nadya's disease Surgical History Hx of appendectomy Hx of esophagogastroduodenoscopy Hx of colonoscopy Family History Father No problems noted. Mother No problems noted. 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 1. Little interest or pleasure in doing things: not at all 2. Feeling down, depressed, or hopeless: not at all 3. Trouble falling or staying asleep, or sleeping too much: not at all 4. Feeling tired or having little energy: not at all 5. Poor appetite or overeating: not at all 6. Feeling bad about yourself - or that you are a failure or have let yourself or your family down: not at all 7. Trouble concentrating on things, such as reading the newspaper or watching television: not at all 8. Moving or speaking so slowly that other people could have noticed. Or the opposite - being so fidgety or restless that you have been moving around a lot more than usual: not at all 9. Thoughts that you would be better off or of hurting yourself in some way: not at all Total score: 0 Depression Screening Interpretation: Negative Depression Screening Done: Yes Source: Developed by Drs. Zeb Ledesma, Aicha Freeman, Jad Irving and colleagues, with an educational di from [employer]. Thrive Questionnaire Date Thrive assessed: 09/04/23 I am a: Patient What is your living situation today?: I have a steady place to live Within the past 12 months, did the food you bought not last and you didn't have the money to get more?: Never true Within the past 12 months, did you worry whether your food would run out before you got money to buy more?: Never true Do you have trouble paying for medicines?: No Do you have trouble getting transportation to medical appointments?: No Do you have trouble paying your heating and electricity bill?: No Do you have trouble taking care of your child, family member or friend?: No Do you have trouble with day-to-day activities such as bathing, preparing meals, shopping, managing finances, etc.?: No Are you currently unemployed and looking for a job?: No Are you interested in more education?: No Please select the resources that you would like help with: None THRIVE Score: 0 YIN-7 AMB Questionnaire YIN-7 Date YIN - 7 assessed: 09/04/23 Feeling nervous, anxious, or on edge: 0 = Not at all Not being able to stop or control worryin = Not at all Worrying too much about different things: 0 = Not at all Trouble relaxin = Not at all Being so restless that it is hard to sit still: 0 = Not at all Becoming easily annoyed or irritable: 0 = Not at all Feeling afraid as if something awful might happen: 0 = Not at all Total YIN-7 score (0-4 normal; 5-9 mild; 10-14 moderate; 15-21 severe): 0 Source: Developed by Drs. Zeb Ledesma, Aicha Freeman, Jad Irving and colleagues, with an educational di from [employer]. Physical exam (Primary Care) Vital Signs: Last Vital Signs Pulse 63 09/04/23 09:36 BP 124/76 09/04/23 09:36 Pulse Ox 98 09/04/23 09:36 Oxygen Delivery Method Room Air 09/04/23 09:36 BMI result Body Mass Index 27.8 Tobacco/Smoking Status: Tobacco use Status Tobacco use date assessed 09/04/23 09/04/23 09:40 Patient Tobacco Use Status Former Tobacco user 09/04/23 09:40 e-Cigarette/Vaping Use Never Used 09/04/23 09:40 PHQ-9: PHQ-9 Score PHQ-9: Total score 0 09/04/23 09:42 Depression Screening Interpretation: Negative Thrive Assessment: Date of Thrive Assessment Date Thrive assessed 09/04/23 09/04/23 09:42 Const General: no acute distress HENMT Head: Yes normal to inspection Ears: hearing grossly normal bilaterally Neck Neck: Yes supple Resp Effort & Inspection: normal respiratory effort Auscultation: clear to auscultation bilaterally Cardio Rhythm: regular rhythm Heart sounds: S1 normal heart sound present and S2 normal heart sound present Back/Spine/Pelvis Thoracic/Lumbar Spine: thoraco-lumbar ROM normal, Lasegue's sign negative and No paraspinal muscle tenderness Neuro Cranial nerves: Yes CN's II-XII intact bilaterally Motor exam (neuro): 5/5 motor strength present throughout Coordination: [id number] test normal Extrem Other: Slightly calf tenderness no swelling erythema or warmth General: Yes capillary refill normal and Yes no clubbing, cyanosis or edema Assessment and Plan Assessment & Plan (1) Bilateral calf pain: Code(s): M79.661 - Pain in right lower leg; M79.662 - Pain in left lower leg Plan: Obtain venous ultrasound to rule out chronic DVTs. Patient was advised to start gentle stretching exercises like yoga twice a day and record his symptoms on a scale from 1 to 10, follow-up in few weeks (2) HTN (hypertension): Code(s): I10 - Essential (primary) hypertension Plan: Continue amlodipine Orders: Orders US venous duplex LE BI Today M79.661 - Pain in right lower leg, M79.662 - Pain in left lower leg Coding Level of Care Code Est Pt Level 3 (67537) Diagnoses Bilateral calf pain M79.661; M79.662 HTN (hypertension) I10
[2023-09-04 09:36] VITALS: BP 124/76; PULSE 63; O2SAT 98; BMI 27.8
== END 2023-09-04 10:36 | disposition home or self-care (01) ==
PROVIDERS: PCP Internal Medicine; Visit Provider Internal Medicine
DX: M79.661 Pain in right lower leg (principal); M79.662 Pain in left lower leg; I10 Essential (primary) hypertension
CPT/HCPCS: 99213

== ENCOUNTER 2023-09-08 14:49 | Outpatient (REF) | payer BC, SELFPAY ==
--- NOTE | ~2023-09-08 | US_ITS ---
EXAMINATION: US VENOUS ULTRASOUND WITH DOPPLER LOWER EXTREMITY, BILATERAL CLINICAL INFORMATION: Right lower leg pain COMPARISON: None available. TECHNIQUE: Ultrasound of the deep veins is performed from the hip to the calf with compression sonography and color and pulse Doppler assessment. Spectral analysis with color-flow imaging is performed. FINDINGS: RIGHT: There is normal venous compression and respiratory variation and augmented flow. The visualized common femoral vein, superficial femoral vein, profunda femoral vein, popliteal vein, and the trifurcation region shows no evidence of deep venous thrombosis. There is no significant popliteal fossa cyst. . In the area of pain in the right mid calf, indicated by the patient, no focal mass or fluid collection is seen. LEFT: There is normal venous compression and respiratory variation and augmented flow. The visualized common femoral vein, superficial femoral vein, profunda femoral vein, popliteal vein, and the trifurcation region shows no evidence of deep venous thrombosis. Left popliteal fossa Meza's cyst measuring 2.4 x 0.5 x 1.3 cm. In the area of pain in the left mid calf, indicated by the patient, no focal mass or fluid collection is seen. If the patient's symptoms persist, followup ultrasound in 5 days 7 days might be of value to exclude proximal propagation from a non-visualized calf vein. US/US venous duplex LE BI IMPRESSION: No DVT demonstrated in the bilateral lower extremity. If the patient's symptoms persist, followup ultrasound in 5 days 7 days might be of value to exclude proximal propagation from a non-visualized calf vein.
== END 2023-09-08 14:50 | disposition home or self-care (01) ==
LOC: HO.US 14:49
PROVIDERS: PCP Internal Medicine; Visit Provider Internal Medicine
DX: M79.661 Pain in right lower leg (principal); M79.662 Pain in left lower leg
CPT/HCPCS: 93970

== ENCOUNTER 2024-03-26 06:24 | Outpatient (REF) | payer BC, SELFPAY ==
[2024-03-26 10:02] LABS: Appearance Urine Clear; Color Urine Yellow; Glucose Urine UA 100 mg/dL (Negative); Leukocyte Esterase Urine Negative (Negative); Nitrite Urine Negative (Negative); Urine Blood Negative (Negative); Urine Ketones Negative (Negative); Urine Protein Negative (Neg-Trace)
[2024-03-26 10:05] LABS: Bacteria Urine None Seen (None Seen); Hyaline Casts Urine 0-2 /LPF (0-2); RBC Urine 0-2 /HPF (0-2); Squamous Epithelial Cell Urine 0-2 /HPF (0-2); WBC Urine 0-5 /HPF (0-5)
--- OUTSIDE RECORDS SUMMARY | 2024-03-31 04:36 | XMS_ITS ---
Author Organization [facility] Address [address] [place] [address] Care Team Providers Care Rougher For Cement Name Role Phone Chichi Ngo MD Primary Care Provider Lubna Gong Unavailable [phone] REASON FOR VISIT SKIAGRAPHER PPWK Entered Problems No Known Problems Encounters Encounter Location Date Provider Diagnosis [address] [address] 03/30/2024 Lubnateri Gil Plan Of Treatment Next Appt Details Provider Name:Maddy Spicer angela, 04/08/2024 08:30:00 AM, [address] [place], [address], Progress Notes * Anupam BARTLETT ADOB:1975 (48 yo M)Acc No.[id number]:03/30/2024 Patient:?Anupam BARTLETT :1975???Age:48 Y???Sex:Male Address:[address] [place], [address] * * Date:?
--- OUTSIDE RECORDS SUMMARY | 2024-03-31 04:36 | XMS_ITS | Patient Health Record ---
Author Organization [facility] Address [address] [place] [address] Care Team Providers Care Hay Chopper Name Role Phone Chichi Ngo MD Primary Care Provider Lubna Gong Unavailable [phone] Allergies Allergen (clinical drug ingredient) Drug/Non Drug Allergy documented on EMR Reaction Allergy Type Onset Date Status Mushroom mushroom (uncoded) Unknown Allergy A ctive valsartan Valsartan Unknown Drug Allergy Active Reason For Referral No Information Medications Medication SIG (Take, Route, Fr equency, Duration) Notes Start Date End Date Status Synthroid 150 MCG TAKE 1 TABLET BY JAMES TH EVERY DAY Oral for 90 Active Omeprazole 20 MG TAKE ONE CAPSULE BY MOUTH EVERY DAY Oral for 90 Active Social History Tobacco Use: Social History Observation Description Date Details (start date - stop date) Former Smoker NA - NA Tobacco Use/Smoking Question Answer Notes Are you a: former smoker When did you start smoking? 16 years ago Additional Findings: Tobacco Non-User Ex-very he josefina cigarette smoker (40+/day) Alcohol Screen Question Answer Notes Did you have a drink containing alcohol in the p ast year? Yes Points 0 Interpretation Negative Tobacco use other than smoking: Question Answer Notes Are you an other tobacco user? No Problems No Known Problems Encounters Encounter Location Date Provider Diagnosis [facility] [address] [place] [address] 03/30/2024 Lubna Gil Plan Of Treatment Next Appt Details Provider Name:Maddy miller, 04/08/2024 08:30:00 AM, [address] [facility], [place], [address], Insurance Providers Payer Name Payer Address Payer Phone Subscriber Number Group Number Insured Name Patient Relationship to Insured Coverage Start Date Coverage End Date [facility] [address] [place] [address] [id number] Anupam Bartlett Self - patient is the insured Medical (General) History Medical History History ICD Code Hypertension Reflux ( GERD) Thyroid disorder Warts Chicken pox Back,Hip,and Knee pain Headaches/Migraines Surgical History Surgery Date(Month/Year) colonoscopy appendectomy endoscopy
== END 2024-03-26 06:25 | disposition home or self-care (01) ==
LOC: HO.HMGCLDS 06:24
PROVIDERS: PCP Internal Medicine; Visit Provider Urology
DX: R33.9 Retention of urine, unspecified (principal); R35.0 Frequency of micturition
CPT/HCPCS: 81001; 87086

== ENCOUNTER 2024-06-29 08:48 | Emergency (ER) | payer BC, SELFPAY ==
--- NOTE | ~2024-06-29 | XR_ITS ---
EXAMINATION: XR CHEST 2 VIEWS HISTORY: dizziness COMPARISON: There are no prior studies for comparison. FINDINGS: PA and lateral views of the chest are submitted. The lungs are expanded and clear. There is no pleural effusion, pneumothorax, or pulmonary vascular congestion. The heart is normal in size. The bones are intact. XR/XR chest 2V IMPRESSION: Normal examination of the chest. Electronically signed by: Zeb Garcia MD 06/29/2024 10:30 AM EDT
--- NOTE | 2024-06-29 08:50 | ECG_ITS ---
Test Reason : chest pain/ tightness Blood Pressure : */* mmHG Vent. Rate : 73 BPM Atrial Rate : 73 BPM P-R Int : 140 ms QRS Dur : 86 ms QT Int : 374 ms P-R-T Axes : 32 38 10 degrees QTcB Int : 412 ms Normal sinus rhythm Normal ECG No previous ECGs available Referred By: Generic ED Physician Electronically Signed By: NIURKA GOVEA
[2024-06-29 08:52] VITALS: BP 154/95; PULSE 79; RESP 18; TEMP 36.6; O2SAT 97; BMI 26.4
[2024-06-29 09:07] LABS: MANUAL DIFF FLAG NO
[2024-06-29 09:09] LABS: Basophils Percent Auto 0.5 % (0-2); Eosinophils Percent Auto 0.5 % (0-4); Hematocrit 41.8 % (42.0-52.0); Hemoglobin 14.5 g/dl (14.0-18.0); Imm Gran Abs Auto 0.01 X10*3/uL (0.00-0.03); Imm Gran Pct Auto 0.2 % (0.0-0.4); Lymphocytes Absolute Auto 1.1 X10*3/uL (1.2-4.9); Lymphocytes Percent Auto 18.8 % (20-40); Mean Corpuscular HGB Conc 34.7 g/dl (31.0-36.0); Mean Corpuscular Hemoglobin 30.6 pg (27.0-33.0); Mean Corpuscular Volume 88.2 fL (80.0-98.0); Mean Platelet Volume 9.3 fL (9.4-12.4); Monocytes Absolute Auto 0.4 X10*3/uL (0.1-1.2); Neutrophils Absolute Auto 4.3 x10*3/uL (2.0-8.3); Platelet Count 227 X10*3/uL (160-400); Red Blood Count 4.74 X10*6/uL (4.60-5.80); Red Cell Distribution Width 12.4 % (11.0-16.0); White Blood Count 5.9 X10*3/uL (4.8-10.8)
[2024-06-29 09:44] LABS: Alanine Aminotransferase 25 U/L (0-40); Albumin Level 4.8 g/dL (3.5-5.0); Alkaline Phosphatase 67 U/L (39-117); Anion Gap 14 (12-20); Aspartate Amino Transferase 26 U/L (5-37); Bilirubin Total 0.6 mg/dL (0.0-1.0); Blood Urea Nitrogen 19 mg/dL (9-16); Calcium 10.2 mg/dL (8.4-10.2); Carbon Dioxide 25 mmol/L (22-29); Chloride 109 mmol/L (96-108); Creatinine Clr Calc Pharmacy 91.1; Estimated Glomerular Filt Rate > 60; Glucose Random 125 mg/dL (60-115); Potassium 5.1 mmol/L (3.3-5.1); Sodium 143 mmol/L (135-145)
[2024-06-29 09:53] LABS: Troponin-I High Sensitivity < 2.7 ng/L (<3.5-35.0)
--- NOTE | 2024-06-29 10:04 | ED_ITS ---
HPI - General Adult General Chief complaint: General Medical Stated complaint: Dizziness, chest tightness Time Seen by Provider: 06/29/24 09:35 Source: patient and family Mode of arrival: ambulatory Limitations: no limitations History of Present Illness HPI narrative: 49-year-old male otherwise healthy does take medications for blood pressure and hypothyroidism presents emergency department with several days of not feeling well anorexia and intermittent dizziness when he stands. States he has had some chest pain as well. Patient was very vague about his symptoms in his reason for coming in his did clarify that the reason he is here because his father of heart attack and she was worried when he said he had chest pain. Patient has no chest pain at this time he denies any dizziness at this time he denies nausea or vomiting he does admit to not eating as much as usual for the past few days. Related Data Home Medications ?Medication ?Instructions ?Recorded ?Confirmed ibuprofen 200 mg tablet 200 mg PO Q6H PRN 10/24/21 09/04/23 Previous Rx's ?Medication ?Instructions ?Recorded levothyroxine 112 mcg tablet 112 mcg PO DAILY #90 tabs 06/19/23 tadalafil 5 mg tablet 5 mg PO DAILY sexual activity 90 10/30/23 days #90 tabs amlodipine 10 mg tablet 10 mg PO DAILY #90 tabs 05/28/24 Allergies Allergy/AdvReac Type Severity Reaction Status Date / Time valsartan Allergy Unknown headache Verified 06/29/24 08:53 Review of Systems 2 Review of Systems: Review of systems: General: Patient denies any fever chills recent illness or falls Musculoskeletal: Denies back pain or body aches or other injuries HEENT: denies headache, runny nose, ear pain Respiratory: denies shortness of breath, cough Cardiovascular: no chest pain or palpitations : denies dysuria, frequency Abdomen: no nausea vomiting denies abdominal pain Extremities: no swelling, no pain Skin: no diaphoresis Yes all other systems are reviewed and are negative [facility] Past Medical History Medical History Urinary retention Increased frequency of urination Right calf pain Annual physical exam HTN (hypertension) Hypothyroid H/O exercise stress test GERD (gastroesophageal reflux disease) Nadya's disease Surgical History Hx of appendectomy Hx of esophagogastroduodenoscopy Hx of colonoscopy Family History Family History Father No problems noted. Mother No problems noted. Sister Rheumatoid arthritis Social History Social History Household Members Other:: 2 children, 13 and 15 yr(2022), teacher in [employer] Housing: House Patient Tobacco Use Status: Former Tobacco user Smoked in Last 30 Days: No e-Cigarette/Vaping Use: Never Used Use of substances other than those prescribed or required for medical reasons: No Advance Directives: No Advance Directives Information Provided: Yes service: No Current occupational status: employed Cognitive needs: No Hearing needs: No Vision needs: Yes Physical Exam ED Vital Signs: Vital Signs - 24 hr 06/29/24 08:52 Temperature 97.9 F Pulse Rate 79 Respiratory Rate 18 Blood Pressure 154/95 H Pulse Oximetry 97 Oxygen Delivery Method Room Air BMI result Body Mass Index 26.4 Neurological exam: CN II- XII tested. Patient is alert and oriented to person place and time. Patient has no dysphagia or dysarthia, denies good vision in all four vision bueno no nystagmus on exam, good strength to upper and lower extremities with normal reflexes to brachioradialis, wrist, patella and achilles. Patient is able to walk around the room do squats woken in his toes and his heels without any issues unable to reproduce the dizziness Negative romberg, good finger to nose and heel to reid. General: Well-appearing well-nourished in no signs of distress HEENT: Normocephalic atraumatic Neck: No signs of JVD, no masses no tenderness or lymphadenopathy Cardiovascular: Regular rate and rhythm Respiratory: Clear to auscultation bilaterally Abdomen: Soft nontender no masses Extremities: Normal pedal pulses no signs of edema Skin: Dry warm no rashes Back: No tenderness full ROM Course Course Course Narrative: Patient underwent testing including troponin the 1st saw the patient x-ray was normal I do feel comfortable with the patient going home I explained all the lab results and need for follow-up patient is happy with the plan to go home. Medical Decision Making Differential Diagnosis Differential Diagnoses: The differential diagnosis associated with the presentation includes Anemia electrolyte abnormality less likely ACS does complain of dizziness spasm completetly normal neuro exam Lab Data MDM Lab Attestation statement: I reviewed the patient's lab results. 06/29/24 09:03 06/29/24 09:03 Labs: Lab Results 06/29/24 Range/Units 09:03 WBC 5.9 (4.8-10.8) X10*3/uL RBC 4.74 (4.60-5.80) X10*6/uL Hgb 14.5 (14.0-18.0) g/dl Hct 41.8 L (42.0-52.0) % MCV 88.2 (80.0-98.0) fL MCH 30.6 (27.0-33.0) pg MCHC 34.7 (31.0-36.0) g/dl RDW 12.4 (11.0-16.0) % Plt Count 227 (160-400) X10*3/uL MPV 9.3 L (9.4-12.4) fL Immature Gran % (Auto) 0.2 (0.0-0.4) % Neut % (Auto) 74.0 H (45-73) % Lymph % (Auto) 18.8 L (20-40) % [place] % (Auto) 6.0 (2-11) % Eos % (Auto) 0.5 (0-4) % Baso % (Auto) 0.5 (0-2) % Lymph # (Auto) 1.1 L (1.2-4.9) X10*3/uL [place] # (Auto) 0.4 (0.1-1.2) X10*3/uL Eos # (Auto) 0.0 (0.0-0.4) X10*3/uL Baso # (Auto) 0.0 (0.0-0.2) X10*3/uL Abs Immat Gran (auto) 0.01 (0.00-0.03) X10*3/uL Absolute Neuts (auto) 4.3 (2.0-8.3) x10*3/uL Absolute Nucleated RBC 0.000 (0.0-0.012) X10*3/uL Nucleated RBC % (auto) 0.0 (0.0-0.2) /100WBC Sodium 143 (135-145) mmol/L Potassium 5.1 (3.3-5.1) mmol/L Chloride 109 H (96-108) mmol/L Carbon Dioxide 25 (22-29) mmol/L Anion Gap 14 (12-20) BUN 19 H (9-16) mg/dL Creatinine 1.12 (0.5-1.4) mg/dL Estim Creat Clear Calc 91.1 Estimated GFR > 60 Random Glucose 125 H (60-115) mg/dL Calcium 10.2 D (8.4-10.2) mg/dL Total Bilirubin 0.6 (0.0-1.0) mg/dL AST 26 (5-37) U/L ALT 25 (0-40) U/L Alkaline Phosphatase 67 (39-117) U/L Troponin I High Sens < 2.7 (<3.5-35.0) ng/L Total Protein 8.0 (6.5-8.0) g/dL Albumin 4.8 (3.5-5.0) g/dL Independent Interpretation I performed an independent interpretation of an: EKG and Plain X-Ray Interpretation: Rate 73 normal sinus rhythm normal intervals no signs of ischemia unchanged from previous interpreted by me Radiology Impression Discussion of test interpretation with radiology: I have reviewed the radiologist's reading. Independent Historian Clinical information obtained from an independent historian. History obtained from or confirmed by: Spouse Scores Heart Score History: -0- slightly suspicious ECG: -0- normal Age: -1- >45 - <65 Risk factory: -0- no risk factors known Troponin: -0- < or = normal limit Score: 1 Risk: 1.7% Discharge Plan Discharge Clinical Impression: Chest pain, Dizziness Patient Disposition: Home, Self-Care Instructions: Chest Pain (ED), Lightheadedness (ED) Additional Instructions: You were seen today by Dr. Flynn for dizziness and chest pain. You underwent testing including x-ray and labs did not show anything concerning for heart. If you have any other concerns please return to the ER. Prescriptions: No Action tadalafil 5 mg tablet 5 mg PO DAILY 90 Days Qty: 90 0RF amlodipine 10 mg tablet 10 mg PO DAILY Qty: 90 3RF ibuprofen 200 mg tablet 200 mg PO Q6H PRN levothyroxine 112 mcg tablet 112 mcg PO DAILY Qty: 90 3RF Print Language: Icelandic
--- OUTSIDE RECORDS SUMMARY | 2024-06-29 10:07 | XMS_ITS | Patient Health Record ---
Author Organization [facility] Address [address] [place] [address] Care Team Providers Care Property Controller Name Role Phone Chichi Ngo MD Primary Care Provider Unavaila Maddy Booth Unavailable [phone] Lubna Gil Unavailable [phone] Allergies Allergen (clinical drug ingredient) Drug/Non Drug Allergy documented on EMR Reaction Allergy Type Onset Date Status Mushroom mushroom (uncoded) Unknown Allergy A ctive valsartan Valsartan Unknown Drug Allergy Active Reason For Referral Diagnosis 1 Achilles tendinitis, right leg (M76.61) Diagnosis 2 Calcaneal spur, righ t foot (M77.31) Diagnosis 3 Other myositis, righ t ankle and foot (M60.871) Diagnosis 4 Other bursitis, not elsewhere classified, right ankle and foot (M71.571) Referring Provider First Name Chichi Referring Provider Last Name Jeni [facility] Referred Provider Lubna Gil Referred Address [address] [facility],[place], [place],[address], Referred Provider Specialty Podiatry Referral Priority Routine Diagnosis 1 Achilles tendinitis, right leg (M76.61) Diagnosis 2 Calcaneal spur, righ t foot (M77.31) Diagnosis 3 Other myositis, righ t ankle and foot (M60.871) Diagnosis 4 Other bursitis, not elsewhere classified, right ankle and foot (M71.571) Referring Provider First Name Chichi Referring Provider Last Name [facility] Referred Provider Maddy Muhammad Referred Address [address] [facility] [facility],[place],[address],[place] Referred Provider Specialty Podiatry Referral Priority Routine Diagnosis 1 Achilles tendinitis, right leg (M76.61) Diagnosis 2 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) Diagnosis 3 Calcaneal spur, righ t foot (M77.31) Diagnosis 4 Other myositis, righ t ankle and foot (M60.871) Diagnosis 5 Other bursitis, not elsewhere classified, right ankle and foot (M71.571) Diagnosis 6 Pain of left heel (M 79.672) Referring Provider First Name Chichi [facility] Referred Provider Robbi Winkler Referred Address [address] [facility] [facility],[place], [place],[address],[place] Referred Provider Specialty Podiatry Referral Priority Routine Medications Medication SIG (Take, Route, Fr equency, Duration) Notes Start Date End Date Status Levothyroxine Sodium Active amLODIPine Besylate Active Synthroid 150 MCG TAKE 1 TABLET BY JAMES TH EVERY DAY Oral for 90 Unknown Tadalafil Active Omeprazole 20 MG TAKE ONE CAPSULE BY MOUTH EVERY DAY Oral for 90 Unknown Medrol lynne 4mg as directed orally a s directed for 6 days 04/08/2024 Active Social History Tobacco Use: Social History [...] you an other tobacco user? 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 Vital Signs Blood pressure diastolic 80 mm Hg 04/08/2024 Height 6 ft 1 in in 04/08/2024 Blood pressure systolic 120 mm Hg 04/08/2024 Weight 185 lbs 04/08/2024 BMI 24.41 kg/m2 04/08/2024 Encounters Encounter Location Date Provider Diagnosis [facility] [address] 04/08/2024 Maddy Muhammad Achilles tendinitis of left lower extremity M76.62 ; Pain of left heel M79.672 ; 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 ; Bud's deformity of left heel M92.62 and Short Achilles tendon (acquired), left ankle M67.[address] [facility] [address] 03/30/2024 Lubna Gil [facility] [address] 04/05/2024 Maddy Muhammad Assessments Encounter Date Diagnosis (ICD Code) Assessment Notes Treatment Notes Treatment Clinical Notes Section Notes 04/08/2024 Achilles tendinitis of left lower extremity (ICD-10 - M76.62) Patient Educated with: HEEL CORD STRETCHES.pdf (HEEL CORD STRETCHES.pdf) Patient Educated with: RICE THERAPY.pdf (RICE THERAPY.pdf) 04/08/2024 Pain of left heel (ICD-10 - M79.672) 04/08/2024 Exostosis of left posterior calcaneus (ICD-10 - M77.32) 04/08/2024 Bud's deformity of left heel (ICD-10 - M92.62) 04/08/2024 Short Achilles tendon (acquired), 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) Plan Of Treatment Pending Test Test Name Order Date X ray : Foot, left 3V 04/08/2024 Next Appt Details Provider Name:Robbi Winkler , 07/13/2024 03:00:00 PM, [address] [place] [address], [phone], Insurance Providers Payer Name Payer Address Payer Phone Subscriber Number Group Number Insured Name Patient Relationship to Insured Coverage Start Date Coverage End Date [facility] [address] [place] [address] [id number] Anupam Bartlett Self - patient is the insured Medical (General) History Medical History History ICD Code Hypertension Reflux ( GERD) Thyroid disorder Warts Chicken pox Back,Hip,and Knee pain Headaches/Migraines Surgical History Surgery Date(Month/Year) colonoscopy appendectomy endoscopy
--- OUTSIDE RECORDS SUMMARY | 2024-06-29 10:07 | XMS_ITS ---
Author Organization [facility] Address [address] [place] [address] Care Team Providers Care Fourdrinier Machine Operator Name Role Phone Chichi Ngo MD Primary Care Provider Unavaila Maddy Booth [phone] REASON FOR VISIT Referral Encounters Encounter Location Date Provider Diagnosis [address] [address] 04/05/2024 Maddy Muhammad Plan Of Treatment Next Appt Details Provider Name:Robbi Winkler , 07/13/2024 03:00:00 PM, [address] [place] [address], [phone], Progress Notes * Anupam BARTLETT ADOB:1975 (48 yo M)Acc No.[id number]:04/05/2024 Patient:?Anupam BARTLETT :1975???Age:48 Y???Sex:Male [address] [place], [address] * true * Date:? Generated for Printi ng/Faxing/eTransmitting on:?06/29/2024 10:06 AM EDT
--- OUTSIDE RECORDS SUMMARY | 2024-06-29 10:07 | XMS_ITS ---
[facility] Organization [facility] Address [address] [address] Care Team Providers Care Automatic Tire Tester Name Role Phone Chichi Ngo MD Primary Care Provider Maddy Siu Unavailable [phone] Allergies Allergen (clinical drug ingredient) Drug/Non Drug Allergy documented on EMR Reaction Allergy Type Onset Date Status Mushroom mushroom (uncoded) Unknown Allergy A ctive valsartan Valsartan Unknown Drug Allergy Active REASON FOR VISIT Heel pain Medications Medication SIG (Take, Route, Fr equency, Duration) Notes Start Date End Date Status Levothyroxine Sodium Active Synthroid 150 MCG TAKE 1 TABLET BY JAMES TH EVERY DAY Oral for 90 Unknown Tadalafil Active Omeprazole 20 MG TAKE ONE CAPSULE BY MOUTH EVERY DAY Oral for 90 Unknown Medrol lynne 4mg as directed orally a s directed for 6 days 04/08/2024 Active amLODIPine Besylate Active Social History Tobacco Use: Social History [...] Notes Problem 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 Vital Signs Height 6 ft 1 in in 04/08/2024 Weight 185 lbs 04/08/2024 BMI 24.41 kg/m2 04/08/2024 Blood pressure systolic 120 mm Hg 04/08/20 24 Blood pressure diastolic 80 mm Hg 024 Encounters Encounter Location Date Provider Diagnosis [facility] [address] [address] 04/08/2024 Maddy Muhammad Achilles tendinitis of left lower extremity M76.62 ; Pain of left heel M79.672 ; 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 ; Bud's deformity of left heel M92.62 and Short Achilles tendon (acquired), left ankle M67.02 Assessments Encounter Date Diagnosis (ICD Code) Assessment [...] ankle (ICD-10 - M67.02) Plan Of Treatment Medication Medication Name Sig Start Date Stop Date Notes Medrol lynne 4mg as directed orally as directed for 6 days 1 06/09/2023 Treatment Notes Assessment Notes Achilles tendinitis of left lower extrem ity Patient Educated with: HEEL CORD STRETCHES.pdf (HEEL CORD STRETCHES.pdf) Patient Educated with: RICE THERAPY.pdf (RICE THERAPY.pdf) Pending Test Test Name Order Date X ray : Foot, left 3V 04/08/2024 Next Appt Details Follow Up: 6 Weeks, Reason: Provider Name:Robbi Winkler , 07/13/2024 03:00:00 PM, [address] [place], [address], Progress Notes * Anupam BARTLETT ADOB:1975 (48 yo M)Acc No.[id number]:04/08/2024 Progress Notes Patient:?Anupam BARTLETT Provider:?Maddy Muhammad DPM :1975???Age:48 Y???Sex:Male Oniel e:04/08/2024 Address:[address] [place], [place] [id number] Pcp:Chichi Ngo MD Subjective: * Chief Complaints: * ???Heel pain * HPI: ???Heel pain:?Location:?Back of heel, LEFT.?Duration:?several weeks.?Course:?worse.?Aggravated:?standing, walking, walking first thing in the morning/after rest.?Treatments:?rest/alter normal daily activity- improved pain (normally a runner has decreased activity).? * ROS:?General/Constitutional:?Nausea?denies.?Vomiting?denies.?Hunger Thirst?denies.?Loss appetite?denies.?Chills?denies.?Fatigue?denies.?Fever?denies.?Night Sweats?denies.?Unexplained weight loss?denies.?Unexplained weight gain?denies.?HEENTM:?Dentures?denies.?Dizziness?denies.?Glasses/contacts?admits.?Retinopathy?de nies.?Blurred/double vision?denies.?TMJ?admits.?Discharge/drainage?denies.?Implants?denies.?Sore throat?denies.?Dental implants?denies.?Hard of hearing ?denies.?Difficulty chewing/swallowing/speaking?denies.?Nose bleeds?denies.?Sore mouth?denies.?Respiratory:?On Oxygen?denies.?Pneumonia/pleurisy?denies.?Bronchitis?denies.?Emphysema?denies.?C oughing?denies.?Cough blood?denies.?Shortness of breath?denies.?Wheezing?denies.?Cardiovascular:?Pacemaker?denies.?MVP?denies.?WPW?denies.?CHF?denies.?Heart attack?denies.?Septal defect?denies.?Rapid beat?denies.?Chest pain ?denies.?Atrial Fib.?denies.?Murmur/Palpitations?denies.?Gastrointestinal:?Hemorrhoids?denies.?Stomach/Abdominal pain?denies.?Dark blood stool?denies.?Irritable bowel ?denies.?Constipation?denies.?Diarrhea?denies.?Hematology:?Swelling?denies.?Clots?denies.?Varicose Veins?denies.?Bruising?denies.?Bleeding problem?denies.?Genitourinary:?Blood urine?denies.?Frequent/Painfu/urination/bladder control?admits.?Kidney stones?denies.?Infection (UTI)?denies.?Nephropathy?denies.?sex trans dis (STD)?denies.?Prostate?denies.?Musculoskeletal:?Hammertoes?denies.?Bunions?denies.?Back Pain?admits.?Muscle Cramps/ Resting?admits.?Muscle cramps / walking?denies.?Generalized aches and pains?admits.?Weakness?denies.?Integ.:?Acuna?denies.?Scars?denies.?Corns/calluses?denies.?Ingrown nails?denies.?Painful nails?denies.?Open Sores?denies.?Rashes?denies.?Neurologic:?Difficulty sleeping?denies.?Brain disorder?denies.?Numbness?denies.?Balance trouble?denies.?Confusion?denies.?Fainting/blackouts?denies.?Tingling?denies.?Tr emors?denies.? * Medical History:? * Surgical History:?colonoscop y appendectomy endoscopy * Hospitalization/Major Diagno stic Procedure:?Denies Past Hospitalization * Family History:?Mother: ben williamson, diagnosed with Other malignant neoplasm of unspecified site.?Father: , poor circulation, diagnosed with Unspecified heart disease, Unspecified essential hypertension.?Paternal Grand Mother: diagnosed with Other malignant neoplasm of unspecified site.?Paternal Grand Father: diagnosed with Other malignant neoplasm of unspecified site.? * Social History:?Tobacco Use:?Tobacco Use/Smoking?Are you a:?former smoker ?When did you start smoking??16 years ago ?Additional Findings: Tobacco Non-User?Ex-very heavy cigarette smoker (40+/day) ?Tobacco use other than smoking?Are you an other tobacco user??No ???Drugs/Alcohol:?Drugs?Have you used drugs other than those for medical reasons in the past 12 months??No ?Alcohol Screen?Did you have a drink containing alcohol in the past year??Yes ?Points?0 ?Interpretation?Negative ???Miscellaneous:?Caffeine: yes, 2-3 cups per day. ?Children: yes, 2. ?Exercise: yes, moderate exercise. ?Marital status: . ?Occupation: Teacher. * Medications:?TakingamLODIPin e Besylate Levothyroxine Sodium Tadalafil Taking amLODIPine Besylate Taking Levothyroxine Sodium Taking Tadalafil UnknownSynthroid 150 MCG Tablet TAKE 1 TABLET BY MOUTH EVERY DAY Oral Omeprazole 20 MG Capsule Delayed Release TAKE ONE CAPSULE BY MOUTH EVERY DAY Oral Medication List reviewed and reconciled with the patientUnknown Synthroid 150 MCG Tablet TAKE 1 TABLET BY MOUTH EVERY DAY Oral Unknown Omeprazole 20 MG Capsule Delayed Release TAKE ONE CAPSULE BY MOUTH EVERY DAY Oral Medication List reviewed and reconciled with the patient * Allergies:?mushroomValsartan yes[Allergies Verified] Objective: * Vitals:?Ht:6 ft 1 in, Wt:185 , BMI:24.41, Shoe size:03/02, BP:120/80mm Hg, Ht-cm: 185.42 cm, Wt-k.91 kg. * Examination: ???General Examination: ?GENERAL APPEARANCE:?Reveals a pleasant, alert, well-nourished, well- developed, well hydrated individual, who demonstrates proper attention to hygiene/body habitus, and is in no acute distress, Pt serves as own?historian for office visit today.?ORIENTED:?person, place, and time.?Vascular: ?DP PULSES (B):?3/4, B/L.?PT PULSES (B):?3/4, B/L.?CAPILLARY FILL TIME:?immediate, all digits, B/L.?TROPHIC CONDITION-TEXTURE/ELASTICITY/TURGOR/HAIR GROWTH (B):?normal, B/L.?TEMPERTURE GRADIENT (C):?warm to cool, proximal to distal, B/L.?PIGMENTATION:?normal, B/L.?EDEMA (C):?absent, B/L.?Heel Pain: ?INSPECTION:?Pain on palpation to Posterior Superior Aspect Calcaneus,Pain on palpation to Achilles tendon/bursa with inflammation and swelling present,Prominent posterior and posterior/superior heel present, LEFT foot,Neg [place].?Orthopedic: ?MUSCLE STRENGTH:?5/5 all groups in a symmetrical fashion , B/L.?GAIT ABNORMALITY:?antalgic.?FOOT MORPHOLOGY:? Decreased Ankle joint dorsiflexion ROM, knee extended.?X-Rays - IMAGING REPORT: ?Clinical Indication(s):? Evaluate for Fracture, Evaluate Biomechanical Deformity.?Views:?3 views of Foot, LAT, LO, MO, LEFT??Taken by trained?Podiatric Nylon Winder (?EH).?Findings:?normal bone and soft tissue density consistent for patients age and sex, increase in soft tissue contour and density at the symptomatic site, navicular/cuneiform plantar subluxation with anterior cyma line, positive retrocalcaneal exostosis, no coalitions identified.?Fracture:?Negative fractures identified.?Neurological: ?SENSORY:?Neurological exam reveals intact sensorium, pain sensation normal, vibration sensation intact, pinprick sensation is normal in the lower extremities, Pt denies, anesthesia, burning, paresthesia, tingling, B/L.?DEEP TENDON REFLEXES:? Deferred on symptomatic extremity due to discomfort , Achilles, 2/4, B/L.?Dermatologic: ?SKIN FINDINGS:?Skin exam reveals normal texture, elasticity, and turgor. There are no masses. The interspaces are clear.? 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 Plan: * Treatment: 2.?Pain of left heel?Imaging: X ray : Foot, left 3V * Procedure Codes:?34397 X-RAY EXAM OF LEFT FOOT 3V, Modifiers: 26 , LT * Preventive Medicine:? ??Counseling:?Discussion:?-04: Office or other outpatient visit for the evaluation and management of a new patient, which required a medically appropriate history and/or examination and MODERATE level of DECISION MAKING for: 1 OR MORE CHRONIC PROBLEM(S) THATS WORSENING, 2 STABLE CHRONIC PROBLEMS, A NEWLY DIAGNOSED PROBLEM WITH UNCERTAIN PROGNOSIS, AN ACUTE COMPLICATED INJURY WITH MULTIPLE TREATMENT OPTIONS, OR AN ACUTE PROBLEM WITH ACCOMPANYING SYSTEMIC SYMPTOMS, THAT POSE(S) A MODERATE RISK OF MORBIDITY. THIS CONDITION MAY ALSO INCLUDE RX DRUG MANAGEMENT, OR A DECISON FOR MINOR SURGERY. The visit on the day of the encounter encompassed interpreting the data and educating the patient as to the nature of their condition, treatment options available according to their individual PMH, meds, allergies, and overall health/living conditions, as well as any potential risks or complications that may occur from a failure to adhere to, and participate in, the recommended course of therapy. The discussion included a complete verbal, and/or written explanation of the examination results, any x-rays taken, the proposed diagnosis, and outline of the treatment plan. A schedule for future care needs was also explained. The patient verbalized an understanding of the instructions at this time and agreed to be an active participant in their treatment. If the patient should think of any questions or concerns after the visit, I have encouraged the patient to call the office.?Heel pain:?ACHILLES: I explained to the patient the possible etiologies of Achilles Tendonitis including foot type/shoegear/activity level/exercise routine and the risks/benefits of all the different treatment options for pain including: No treatment at all, Rest, Ice, NSAIDs(only if well tolerated after meals), New/supportive Shoegear, Strappings and Tapings, Stretching exercises, Deep Tissue Massage, Heel cups/cushions, Arch support/shoe inserts, Custom orthoses, Topical analgesics including Aspercream/Voltaren gel, Night splint/AFO Bracing for stiffness, Cast boot with crutches/cane/or walker for assisted ambulation, Physical Therapy, EPAT/ESWT, Interfil injection therapy, as well as surgical Winner/Calcanectomy- tendon debridement surgical procedures if needed. Recommendations were made to limit barefoot walking, eliminate wearing nonsupportive shoegear (i.e. flip-flops or sandals, or a shoe with an easily bendable, foldable, or twistable sole) and wear shoegear with a good solid sole, a supportive arch, and plenty of room for an insert/orthotic if necessary. If wearing sandals was required by the patient, we recommended orthopedic sandals such as Orthoheel or Birkenstock even while in the home. If the patient wore heels in the past, we recommended they continue, but eliminate the use of flats. The advantages and disadvantages of each option were discussed and the patients' questions re: shoegear, custom vs prefabricated inserts, activity level, PO vs Topical medications (and their respective potential complications/drug interactions/side effects), and consistency in home treatment regimens for optimal success were answered to their verbally confirmed satisfaction. Literature detailing Achilles Tendonitis and the various treatment options were dispensed and reviewed.?Orthotics:?I explained to the patient the benefits of OT use. I explained that orthoses are medically necessary to decrease the foot pain through proper mechanical control, support of their foot.?P.R.I.C.E.:?The patient was counseled on the use of P.R.I.C.E. and NSAIDS (if well tolerated) to aid in the recovery from their painful condition.?Podiatric Surgery Counseling:?Surgical procedures such as Winner vs Exostectomy with Partial calcanectomy and Achilles debridement with use of tendon reanchoring systems were discussed with the patient, including the risks and advantages as well as disadvantages to either not having, or having surgery, the potential surgical outcomes, possible complications unlimited to no improvement of syptoms/infection/excessive scaring/chronic weakness/failure of procedure/chronic pain, the use of IV/Local vs General anesthesia, and the usual post-op course which includes prolongued recuperation consisting of 2-3 months of casting non-partial weightbearing followed by extensive PT. Total return to normal activity may take a year or more. No guarentees were given. Patient questions re: how each procedure is different, different outcomes, and post-op recuperation were reviewed and the patient verbalized that all answers were clearly understood.?Shoe Gear Counseling:?The patient and I reviewed the types of shoes they should be wearing. My recommendation included obtaining a well-fitted shoe with a good supportive, non-foldable nor twistable sole, plenty of toe/room for the forefoot, and proper arch support. Based on todays examination, I recommended the patient look for new shoes, by having their feet professionally measured. We discussed that generally the best time of the day for a shoe fitting is the afternoon. Different shoes types and brands to best match the patients occupation and vocation were discussed. Specific brand selection will be up to the patient, their individual foot condition/deformities, and fit. The patient and I reviewed the standard new shoe break in period by wearing them for a few hours a day while checking for redness or sores as wear time is increased. The patient verbally confirmed to understanding the information discussed.?Stretching Exercises:?Stretching and deep tissue massage exercises for the patients injury/diagnosis were discussed and demonstrated, Handouts were also given.? * Follow Up:?6 Weeks * Images: * Sign off status: Completed true * Provider:?Maddy Muhammad DPM Date:?06/09/2023 Generated for Lisa arnold/Jorge/Festus on:?06/29/2024 10:06 AM EDT History and Physical Notes * HPI (History of Present Illness) Category Sub-Category Detail Notes Category Not es Heel pain Duration: several weeks Location: Back of heel, LEFT Aggravated: standing, walking, w alking first thing in the morning/after rest Course: worse Treatments: rest/alter normal da angel luis activity- improved pain (normally a runner has decreased activity) Examination Category Sub-Category Detail Notes Category Not es Neurological SENSORY: Neurological exa m reveals intact sensorium, pain sensation normal, vibration sensation intact, pinprick sensation is normal in the lower extremities, Pt denies, anesthesia, burning, paresthesia, tingling, B/L DEEP TENDON REFLEXES: Deferred on sympto matic extremity due to discomfort , Achilles, 2/4, B/L Dermatologic SKIN FINDINGS: Skin exam reveal s normal texture, elasticity, and turgor. There are no masses. The interspaces are clear Orthopedic GAIT ABNORMALITY: antalgic FOOT MORPHOLOGY: Decreased Ankle join t dorsiflexion ROM, knee extended MUSCLE STRENGTH: 5/5 all groups in a symmetrical fashion , B/L General Examination GENERAL APPEARANCE: Reveals a pleasant, alert, well- nourished, well-developed, well hydrated individual, who demonstrates proper attention to hygiene/body habitus, and is in no acute distress, Pt serves as own historian for office visit today ORIENTED: person, place, and t sobia Vascular DP PULSES (B): 3/4, B/L PT PULSES (B): 3/4, B/L CAPILLARY FILL TIME: immediate, all digi ts, B/L TEMPERTURE GRADIENT (C): warm to cool, p roximal to distal, B/L TROPHIC CONDITION-TEXTURE/ELASTICITY/TURGOR/HAIR GROWTH (B): normal, B/L EDEMA (C): absent, B/L PIGMENTATION: normal, B/L X-Rays - IMAGING REPORT Findings: normal b one and soft tissue density consistent for patients age and sex, increase in soft tissue contour and density at the symptomatic site, navicular/cuneiform plantar subluxation with anterior cyma line, positive retrocalcaneal exostosis, no coalitions identified Fracture: Negative fractures i dentified Views: 3 views of Foot, LAT , LO, MO, LEFT Taken by trained Podiatric Nylon Winder ( [facility]) Clinical Indication(s): Evaluate for Fra cture, Evaluate Biomechanical Deformity Heel Pain INSPECTION: Pain on palpatio n to Posterior Superior Aspect Calcaneus, Pain on palpation to Achilles tendon/bursa with inflammation and swelling present, Prominent posterior and posterior/superior heel present, LEFT foot, Neg [place]
--- OUTSIDE RECORDS SUMMARY | 2024-06-29 10:07 | XMS_ITS ---
Author Organization [facility] Address [address] [place] [address] Care Team Providers Care Pan Shover Name Role Phone Chichi Ngo MD Primary Care Provider Unavaila Maddy Booth [phone] Berry Encounters Encounter Location Date Provider Diagnosis [address] [address] 05/25/2024 Maddy Muhammad Plan Of Treatment Next Appt Details Provider Name:Robbi Winkler , 07/13/2024 03:00:00 PM, [address] [place], [address], Progress Notes * Anupam BARTLETT ADOB:1975 (49 yo M)Acc No.[id number]:05/25/2024 Progress Notes Patient:?Anupam BARTLETT Provider:?Maddy Muhammad DPM :1975???Age:49 Y???Sex:Male Oniel e:05/25/2024 Address: [id number] Pcp:Chichi Ngo MD Subjective: * Chief Complaints: * ???1. Dr. Berry. * Medical History:? Objective: * Vitals:? Assessment: Plan: * Treatment: * Images: * The named appointment provid er may or may not be the originator of this progress note, and it is not deemed complete until electronically signed by the appointment provider. Sign off status: Pending * Provider:?Maddy Muhammad DPM Date:?0 05/25/2024 Generated for Lisa arnold/Jorge/Festus on:?06/29/2024 10:06 AM EDT
[2024-06-29 12:06] VITALS: BP 146/77; PULSE 84; RESP 18; TEMP 36.3; O2SAT 98
== END 2024-06-29 12:06 | disposition home or self-care (01) ==
PROVIDERS: Emergency Provider Student in an Organized Health Care Education/Training Program; PCP Internal Medicine
DX: R42 Dizziness and giddiness (principal); R07.89 Other chest pain; E03.9 Hypothyroidism, unspecified; Z79.899 Other long term (current) drug therapy
CPT/HCPCS: 36415; 71046; 80053; 84484; 85025; 93005; 99283; 99284

== ENCOUNTER → 2024-06-29 08:50 | Outpatient (BNV) | payer BC, SELFPAY | PROVIDERS: Emergency Provider Student in an Organized Health Care Education/Training Program; PCP Internal Medicine; Visit Provider Internal Medicine | DX: R07.9 Chest pain, unspecified (principal) | CPT/HCPCS: 93010 ==

== ENCOUNTER → 2024-06-29 10:04 | Outpatient (BNV) | payer BC, SELFPAY | PROVIDERS: Emergency Provider Student in an Organized Health Care Education/Training Program; PCP Internal Medicine; Visit Provider Radiology Diagnostic Radiology | DX: R42 Dizziness and giddiness (principal) | CPT/HCPCS: 71046 ==

== ENCOUNTER 2024-07-02 13:20 | Outpatient (AMB) | payer BC, SELFPAY ==
[2024-07-02 13:31] VITALS: BP 126/78; PULSE 63; RESP 18; TEMP 36.9; O2SAT 97; BMI 26.6
--- NOTE | 2024-07-02 13:31 | MHC.PC.OV ---
Vital Signs 07/02/24 13:31 Height 6 ft 1 in Weight 202 lb BMI 26.6 BP 126/78 Blood Pressure Location Rt brachial Position Sitting Respiration 18 Pulse 63 Pulse Source Pulse Oximeter Temp 98.4 F Temp Source Oral Pulse Oximetry (%) 97 Oxygen Delivery Method Room Air Intake Visit Reasons: Dizziness/chest tightness Intake Note: Pt is here today for a sick visit. Pt c.o dizzy spells and chest tightness. Pt also states that he had some episodes of feeling like he will pass out. Pt also is feeling clammy. Pt states that he went to [facility] ER on 06/29/24. Allergies valsartan Allergy (Unknown, Verified 07/02/24 13:36) headache Medication List - Last Reconciled 07/02/24 by Chichi Ngo MD amlodipine 10 mg PO DAILY ibuprofen 200 mg PO Q6H PRN levothyroxine 112 mcg PO DAILY tadalafil 5 mg PO DAILY 90 days Tobacco use date assessed: 07/02/24 Dental Screening Dental Screen Date: 07/02/24 Did you have a dental visit in the last 12 months?: Yes Did you have a dental problem in the last 6 months where you did not have access to dental care?: No Was dental information given to patient?: Patient has dentist HPI Dizziness/chest tightness HPI Details Pt presents complaining of 1 week of left upper chest discomfort, squeezing like sensation constant up to 4/10 in intensity, no positional. Patient denies cough pleurisy palpitations. Three days ago he had a episode with feeling lightheaded, becoming pale according to his and feeling like passing out while doing the dishes at the sink. He he felt nauseous and threw up. Patient denies loss of consciousness. Patient went to the ER and basic workup including blood work and EKG was negative. 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 He denies depression anxiety change in appetite or sleeping pattern. Patient exercise daily running for up to an hour every morning. He denies any exercise induced chest pain nausea shortness or breath or palpitations. [facility] Medical History Urinary retention Increased frequency of urination Right calf pain Annual physical exam HTN (hypertension) Hypothyroid H/O exercise stress test GERD (gastroesophageal reflux disease) Nadya's disease Surgical History Hx of appendectomy Hx of esophagogastroduodenoscopy Hx of colonoscopy Family History Father No problems noted. Mother No problems noted. 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 How often do you have a drink containing alcohol?: Monthly or less 2. How many drinks containing alcohol do you have on a typical day when you are drinking?: 1 or 2 3. How often do you have six or more drinks on one occasion?: Never Total Score: 1 YIN-7 AMB Questionnaire YIN-7 Date YIN - 7 assessed: 09/04/23 Source: Developed by Drs. Zeb Ledesma, Aicha Freeman, Jad Irving and colleagues, with an educational di from [employer]. Review of Systems Const All systems reviewed & are unremarkable except as noted in HPI and below Eyes Reports no additional complaints ENT Reports no additional complaints Card Reports no additional complaints Resp Reports no additional complaints GI Reports no additional complaints Reports no additional complaints Physical exam (Primary Care) Vital Signs: Last Vital Signs Temp 98.4 F 07/02/24 13:31 Pulse 63 07/02/24 13:31 Resp 18 07/02/24 13:31 BP 126/78 07/02/24 13:31 Pulse Ox 97 07/02/24 13:31 Oxygen Delivery Method Room Air 07/02/24 13:31 BMI result Body Mass Index 26.6 Tobacco/Smoking Status: Tobacco use Status Tobacco use date assessed 07/02/24 07/02/24 13:39 Patient Tobacco Use Status Former Tobacco user 07/02/24 13:39 e-Cigarette/Vaping Use Never Used 07/02/24 13:39 Thrive Assessment: Date of Thrive Assessment Date Thrive assessed 09/04/23 07/02/24 13:39 Const General: no acute distress HENMT Head: Yes normal to inspection Ears: hearing grossly normal bilaterally Mouth: Normal oral and palatal mucosa present Throat: Yes posterior oropharynx normal Eyes General: appearance normal, both eyes and all related structures Neck Neck: Yes no lymphadenopathy and Yes supple Resp Effort & Inspection: normal respiratory effort Auscultation: clear to auscultation bilaterally Cardio Rhythm: regular rhythm Heart sounds: S1 normal heart sound present and S2 normal heart sound present GI Inspection: Yes normal to inspection Palpation (GI): Soft to palpation Percussion: Yes normal to percussion Auscultation: normal bowel sounds Coding Level of Care Code Est Pt Level 4 (43626) Diagnoses Chest pain R07.9 HTN (hypertension) I10 Hypothyroid E03.9 Assessment & Plan Assessment & Plan (1) Chest pain: Comment: nl CXR, EKG, labs in ER, 06/29/2024 Code(s): R07.9 - Chest pain, unspecified Category: Medical Plan: Obtain echocardiogram to evaluate for segment wall motion abnormalities (2) HTN (hypertension): Code(s): I10 - Essential (primary) hypertension Category: Medical Plan: Continue amlodipine (3) Hypothyroid: Code(s): E03.9 - Hypothyroidism, unspecified Category: Medical Plan: Continue levothyroxine Orders: Orders Comprehensive [place]. Panel Fast 3 Months E03.9 - Hypothyroidism, unspecified, I10 - Essential (primary) hypertension, Z00.00 - Encounter for general adult medical examination without abnormal findings UA w Microscopic 3 Months E03.9 - Hypothyroidism, unspecified, I10 - Essential (primary) hypertension, Z00.00 - Encounter for general adult medical examination without abnormal findings Lipid Panel 3 Months E03.9 - Hypothyroidism, unspecified, I10 - Essential (primary) hypertension, Z00.00 - Encounter for general adult medical examination without abnormal findings Complete Blood Count Auto Diff 3 Months E03.9 - Hypothyroidism, unspecified, I10 - Essential (primary) hypertension, Z00.00 - Encounter for general adult medical examination without abnormal findings PSA,Total (Free>4and<10) 3 Months E03.9 - Hypothyroidism, unspecified, I10 - Essential (primary) hypertension, Z00.00 - Encounter for general adult medical examination without abnormal findings TSH reflex Free T4 3 Months E03.9 - Hypothyroidism, unspecified, I10 - Essential (primary) hypertension, Z00.00 - Encounter for general adult medical examination without abnormal findings
--- OUTSIDE RECORDS SUMMARY | 2024-07-02 14:55 | XMS_ITS | Patient Health Record ---
Author Organization [facility] Address [address] [place] [address] Care Team Providers Care Station Examiner Name Role Phone Chichi Ngo MD Primary Care Provider Unavaila Maddy Booth Unavailable [phone] Lubna Gil Unavailable [phone] Allergies Allergen (clinical drug ingredient) Drug/Non Drug [...] Referring Provider Last Name Jeni [facility] Referred Provider Lubna Gil Referred Address [address] [facility],[place],[address], Referred Provider Specialty Podiatry Referral Priority Routine Diagnosis 1 Achilles tendinitis, right leg (M76.61) Diagnosis 2 Calcaneal spur, righ t foot (M77.31) Diagnosis 3 Other myositis, righ t ankle and foot (M60.871) Diagnosis 4 Other bursitis, not elsewhere classified, right ankle and foot (M71.571) Referring Provider First Name Chichi Referring Provider Last Name [facility] Referred Provider Maddy Muhammad Referred Address [address] [facility],[place],[address],[place] Referred Provider Specialty Podiatry Referral Priority Routine [...] First Name Chichi Ref[facility] Referred Provider Robbi Winkler Referred Address [address] [facility],[place],[address],[place] Referred Provider Specialty Podiatry Referral Priority Routine [...] Notes Problem 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 Vital Signs Blood pressure diastolic 80 mm Hg 04/08/2024 Height 6 ft 1 in in 04/08/2024 Blood pressure systolic 120 mm Hg 04/08/2024 Weight 185 lbs 04/08/2024 BMI 24.41 kg/m2 04/08/2024 Encounters Encounter Location Date Provider Diagnosis [facility] [address] 04/08/2024 Maddy Muhammad Achilles tendinitis of left lower extremity M76.62 ; Pain of left heel M79.672 ; 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 ; Bud's deformity of left heel M92.62 and Short Achilles tendon (acquired), left ankle M67.02 [facility] [address] 03/30/2024 Lubna Gil [facility] [address] 04/05/2024 Maddy Muhammad Assessments Encounter Date Diagnosis [...] Provider Name:Robbi Winkler , 07/13/2024 03:00:00 PM, [address] [place] [address], [phone], Insurance Providers Payer Name Payer Address Payer Phone Subscriber Number Group Number Insured Name Patient Relationship to Insured Coverage Start Date Coverage End Date [facility] [address] [place] [address] [phone] [id number] Anupam Bartlett Self - patient is the insured Medical (General) History Medical History History ICD Code Hypertension Reflux ( GERD) Thyroid disorder Warts Chicken pox Back,Hip,and Knee pain Headaches/Migraines Surgical History Surgery Date(Month/Year) colonoscopy appendectomy endoscopy
--- OUTSIDE RECORDS SUMMARY | 2024-07-02 14:55 | XMS_ITS ---
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Sex:Male Oniel e:04/08/2024 Address:[address] [place], [place] [id number] Pcp:Chichi Ngo MD Subjective: * Chief Complaints: [...] posterior and posterior/superior heel present, LEFT foot,Neg [place].?Orthopedic: ?MUSCLE STRENGTH:?5/5 all groups in a symmetrical fashion , B/L.?GAIT ABNORMALITY:?antalgic.?FOOT MORPHOLOGY:? Decreased Ankle joint dorsiflexion ROM, knee extended.?X-Rays - IMAGING REPORT: ?Clinical Indication(s):? Evaluate for Fracture, Evaluate Biomechanical Deformity.?Views:?3 views of Foot, LAT, LO, MO, LEFT??Taken by trained?Podiatric Liner Helper (?EH).?Findings:?normal bone and soft tissue density consistent [...] ray : Foot, left 3V * Procedure Codes:?73368 X-RAY EXAM OF LEFT FOOT 3V, Modifiers: [...] Interfil injection therapy, as well as surgical [place]/Calcanectomy- tendon debridement surgical procedures if needed. Recommendations [...] painful condition.?Podiatric Surgery Counseling:?Surgical procedures such as [place] vs Exostectomy with Partial calcanectomy and Achilles [...] Muhammad DPM Date:?06/09/2023 Generated for Lisa arnold/Jorge/Festus on:?07/02/2024 02:54 PM EDT History and Physical Notes * HPI [...] LO, MO, LEFT Taken by trained Podiatric Liner Helper ( EH) Clinical Indication(s): Evaluate for Fra cture, Evaluate Biomechanical Deformity Heel Pain INSPECTION: Pain on palpatio n to Posterior Superior Aspect Calcaneus, Pain on palpation to Achilles tendon/bursa with inflammation and swelling present, Prominent posterior and posterior/superior heel present, LEFT foot, Neg [place]
--- OUTSIDE RECORDS SUMMARY | 2024-07-02 14:55 | XMS_ITS ---
Author Organization [facility] Address [address] [place] [address] Care Team Providers Care Pipe Fitter Marine Name Role Phone Chichi Ngo MD Primary Care Provider Unavaila Maddy Booth [phone] Berry Encounters Encounter Location Date Provider Diagnosis [address] [address] 05/25/2024 Maddy Muhammad Plan Of Treatment Next Appt Details Provider Name:Robbi Winkler , 07/13/2024 03:00:00 PM, [address] [place], [address], Progress Notes * Anupam BARTLETT ADOB:1975 (49 yo M)Acc No.[id number]:05/25/2024 Progress Notes Patient:?Anupam BARTLETT Provider:?Maddy Muhammad DPM [...] DPM Date:?0 05/25/2024 Generated for Lisa arnold/Jorge/Festus on:?07/02/2024 02:55 PM EDT
--- OUTSIDE RECORDS SUMMARY | 2024-07-02 14:55 | XMS_ITS ---
Author Organization [facility] Address [address] [place] [address] Care Team Providers Care Engineer First Assistant Name Role Phone Chichi Ngo MD Primary Care Provider Unavaila Maddy Booth [phone] REASON FOR VISIT Referral Encounters Encounter Location Date Provider Diagnosis [address] [address] 04/05/2024 Maddy Muhammad Plan Of Treatment Next Appt Details Provider Name:Robbi Winkler , 07/13/2024 03:00:00 PM, [address] [place] [address], [phone], Progress Notes * Anupam BARTLETT ADOB:1975 (48 yo M)Acc No.[id number]:04/05/2024 Patient:?Anupam BARTLETT :1975???Age:48 Y???Sex:Male [address] [place], [address] * true * Date:? Generated for Printi ng/Faxing/eTransmitting on:?07/02/2024 02:55 PM EDT
== END 2024-07-02 15:28 | disposition home or self-care (01) ==
LOC: HO.HMCC 13:21
PROVIDERS: PCP Internal Medicine; Visit Provider Internal Medicine
DX: R07.9 Chest pain, unspecified (principal); I10 Essential (primary) hypertension; E03.9 Hypothyroidism, unspecified

== ENCOUNTER → 2024-07-28 14:57 | Outpatient (REF) | payer BC, SELFPAY ==
--- NOTE | 2024-07-28 15:00 | CA_ITS ---
Transthoracic Echocardiogram Patient (Last, First, Middle): Anupam Bartlett, Gender: Male Date of : 1975 Age: 49 Procedure Date: 07/28/2024 Procedure Type: Transthoracic Echocardiogram Location: OP Height: 185.42 cm Weight: 88.45 kg BSA: 2.13 m2 Heart Rate: bpm BP: 126 / 78 mmHg Drafting Layout Worker: HIREN Referring MD: Chichi Ngo MD Platform Loader: Selwyn Jj MD Symptoms: R06.09 - Other forms of dyspnea Study Quality: Adequate ECG Rhythm: Sinus Conclusions: - Normal study Findings Left Ventricle Normal left ventricular size, thickness, and systolic function. The visually estimated ejection fraction is between 60-65%. Spectral Doppler is indicative of a normal filling pattern. Peak GLS is -20.9%, within normal limits. Right Ventricle Normal right ventricular cavity size and systolic function. Atria Both atria are normal in size. There is no evidence of interatrial shunt. Aortic Valve Normal aortic valve structure and function. There is no aortic valve stenosis. There is no aortic valve regurgitation. Mitral Valve Normal mitral valve structure and function. There is trace mitral valve regurgitation. There is no mitral valve stenosis. Pulmonic Valve The pulmonic valve is likely normal. There is trace pulmonic valve regurgitation. Tricuspid Valve Normal tricuspid valve structure. There is trace tricuspid valve regurgitation. The right ventricular systolic pressure is normal. The right ventricular systolic pressure is 21 mmHg. Normal right atrial pressure. There is no evidence of pulmonary hypertension. Great Vessels All visible segments of the aorta are normal in size. The visualized portions of the pulmonary artery and branches are normal. Venous The inferior vena cava is normal in size and collapses greater than 50% with inspiration. Pericardium/Pleural There is no evidence of pericardial effusion. Measurements 2D Linear Measurements IVSd: 0.92 0.6-0.9/0.6-1.0 cm LVIDd: 5.19 3.9-5.3/4.2-5.9 cm LVIDd Index: 2.44 2.4-3.2/2.2-3.1 cm/m2 LVIDs: 3.50 2.0-3.6 cm LVPWd: 0.87 0.7-1.1 cm LA Diam: 4.00 2.7-3.8/3.0-4.0 cm LAIDs Index: 1.88 1.5-2.3 cm/m2 LV Mass: 207.07 67-162/88-224 g LV Mass Index: 97.21 43-95/49-115 g/m2 LVOT Diam: 2.30 3.0+(-)1.3 cm 2D Systolic Function EF 4C: 60.30 >55% EF 2C: 62.60 >55% EF BiP: 61.40 >55% Mitral Valve MV Pk E: 0.72 MV PK A: 0.54 MV Decel Time: 270.00 E/A: 1.30 E'Lateral: 12.00 E'Medial: 7.83 E/E' Med: 9.10 E/E' Lat: 6.00 PHT: 79.00 MVA PHT: 2.78 Decel Door: 2.65 Aortic Valve AoV Pk Nigel: 1.21 AoV Mn Nigel: 0.83 AoV VTI: 0.29 AoV Pk Grad: 6.00 Aov Mn Grad: 3.00 DAPHNEY Cont.VTI: 3.51 LVOT LVOT Pk Nigel: 1.08 LVOT Mn Nigel: 0.71 LVOT VTI: 0.25 LVOT Pk Grad: 5.00 LVOT Mn Grad: 2.00 LVOT Diam: 2.30 LVOT Area: 4.15 Diastolic Function MV Pk E: 0.72 MV Pk A: 0.54 E/A: 1.30 E'Medial: 7.83 E/E' Med: 9.10 E' Laterial: 12.00 E/E' Lat: 6.00 Right Ventricle TAPSE (mm): 25.40 TVS' Nigel: 13.80 Tricuspid Valve TR Pk Nigel: 2.13 TR Pk Grad: 18.00 RA Press: 3.00 RVSP: 21.00 Great Vessels Aorta Sinus of Valsalva: 3.50 2.0-3.[address] Ridge: 3.33 1.7-3.4 cm Ao Asc: 3.30 2.1-3.4 cm Ao Arch: 2.90 Updated in Other Vendor System with Status of Final Selwyn Jj MD electronically signed on 07/29/2024 3:52:31 PM with status of Final
== END ==
LOC: HO.CARD 14:57
PROVIDERS: PCP Internal Medicine; Visit Provider Internal Medicine
DX: R06.09 Other forms of dyspnea (principal)
CPT/HCPCS: 93306

== ENCOUNTER → 2024-07-28 15:00 | Outpatient (BNV) | payer BC, SELFPAY | PROVIDERS: PCP Internal Medicine; Visit Provider Internal Medicine Cardiovascular Disease | DX: R06.02 Shortness of breath (principal) | CPT/HCPCS: 93306; 93356 ==

== ENCOUNTER 2024-08-10 08:34 | Outpatient (AMB) | payer BC, SELFPAY ==
[2024-08-10 08:37] VITALS: BMI 26.6
--- NOTE | 2024-08-10 08:37 | A.OFFVIS_ITS ---
Vital Signs 08/10/24 08:37 Height 6 ft 1 in Weight 202 lb BMI 26.6 Intake Visit Reasons: 1y follow up Intake Note: Anupam 49 yr old male presents today for his 1 year follow up. Allergies valsartan Allergy (Unknown, Verified 08/10/24 08:40) headache HPI Comments Details: Anupam is a pleasant male. He is a patient Dr. Ngo. He is seen for the following urologic conditions - erectile dysfunction Yearly follow-up Has been on every other day dosing lab low-dose tadalafil Continue good effect Discussed dilating in his thyroid medication Prescription provided Follow-up 12 months Erectile dysfunction Progressive Minimal risk factors - hypertensive, hypothyroid - no evidence of dyslipidemia, triglycerides 110 BMI 26 PSA 1.1 Current therapy daily low-dose tadalafil with good effect PFSH Medical History Urinary retention Increased frequency of urination Right calf pain Annual physical exam HTN (hypertension) Hypothyroid H/O exercise stress test GERD (gastroesophageal reflux disease) Nadya's disease Surgical History Hx of appendectomy Hx of esophagogastroduodenoscopy Hx of colonoscopy Family History Father No problems noted. Mother No problems noted. 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 Tobacco Use Status: Former Tobacco user e-Cigarette/Vaping Use: Never Used service: No Current occupational status: employed Cognitive needs: No Hearing needs: No Vision needs: Yes Review of Systems Const Denies chills and Denies fever(s) Card Reports no additional complaints and Denies syncope Resp Denies cough GI Denies abdominal pain and Denies heartburn Reports as per HPI and Denies change in libido Neuro Denies syncope Psych Denies change in libido Endo Denies change in libido Physical Exam Vital Signs: BMI result Body Mass Index 26.6 Const General: cooperative, healthy appearing, comfortable and no acute distress Orientation/consciousness: patient oriented x3 HEENT Face and sinus: Yes normal facial exam Mouth: moist mucous membranes Neck Neck: Yes normal visual inspection, Yes full ROM and Yes trachea midline Chest Chest palpation & inspection: normal inspection of the chest Resp Effort & Inspection: normal respiratory effort, able to speak in complete sentences and no respiratory distress GI Inspection: Yes normal to inspection Back/Spine/Pelvis Cervical Spine: normal cervical lordosis Thoracic/Lumbar Spine: thoracic and lumbar spine normal to inspection Skin General skin exam: no rashes or lesions noted Neuro General: patient oriented x3, gait normal, tone normal and moves all extremities Extrem General: Yes normal to inspection and Yes capillary refill normal Assessment & Plan Assessment & Plan (1) Urinary retention: Comment: WILL SEE UROLOGY Code(s): R33.9 - Retention of urine, unspecified Category: Medical (2) Erectile dysfunction: Code(s): N52.9 - Male erectile dysfunction, unspecified Category: Medical Plan Twelve month follow-up PSA Orders: Orders Prostate Specific Antigen 12 Months N52.9 - Male erectile dysfunction, unspecified Patient Instructions: This note is constructed using voice recognition software. While every effort has been made to ensure accuracy arts and humanities council director errors may have been included. Imaging studies, laboratory and physical exam results were discussed and reviewed in detail. No major barriers to patient understanding were identified. An opportunity to ask questions regarding the treatment plan was provided. All questions were answered. The patient expressed understanding and agreement with the above treatment plan. The patient is aware they should contact our office by phone for worsening of their current condition or the appearance of new urologic symptoms. Compliance is encouraged with any medications and followup testing that is ordered. It is a privilege to participate in the urologic care of your patient. If you have any questions or concerns regarding treatment for the above conditions, or other urologic issues, please do not hesitate to contact me. The office telephone contact is [phone]. Sincerely, Dr Calvin Liz MD, [facility] - Urology Compassionate Specialist Care for the Genitourinary System Coding Level of Care Code Est Pt Level 4 (94018) Diagnoses Urinary retention R33.9 Erectile dysfunction N52.9
--- OUTSIDE RECORDS SUMMARY | 2024-08-10 08:55 | XMS_ITS | Patient Health Record ---
Author Organization [facility] Address [address] [place] [address] Care Team Providers Care Account Services Associate Name Role Phone Chichi Ngo MD Primary Care Provider UnavailMaddy Mattson Unavailable [phone] Lubna Gil Unavailable [phone] Robbi Winkler Unavailable [phone] Allergies Allergen (clinical drug ingredient) Drug/Non Drug [...] Referring Provider Last Name Jeni [facility]erred Provider Lubna Gil Referred Address [address] [facility],[place], [place],[address], Referred Provider Specialty Podiatry Referral Priority Routine Diagnosis 1 Achilles tendinitis, right leg (M76.61) Diagnosis 2 Calcaneal spur, righ t foot (M77.31) Diagnosis 3 Other myositis, righ t ankle and foot (M60.871) Diagnosis 4 Other bursitis, not elsewhere classified, right ankle and foot (M71.571) Referring Provider First Name Chichi Referring Provider Last Name [facility] Referred [facility] Referred Provider Maddy Muhammad Referred Address [address] [place], [place],[address],[place] Referred Provider Specialty Podiatry Referral Priority Routine [...] First Name Chichi Referring Provider Last Name [facility] Referred Provider Robbi Winkler Referred Address [address] [place], [place],[address],[place] Referred Provider Specialty Podiatry Referral Priority Routine Medications Medication SIG (Take, Route, Fr equency, Duration) Notes Start Date End Date Status Levothyroxine Sodium Active Tadalafil Active amLODIPine Besylate Active Medrol lynne 4mg as directed orally a s directed for 6 days 04/08/2024 Active Synthroid 150 MCG TAKE 1 TABLET BY JAMES TH EVERY DAY Oral for 90 Unknown Omeprazole 20 MG TAKE ONE CAPSULE BY MOUTH EVERY DAY Oral for 90 Unknown Social History Tobacco Use: Social History Observation Description Date Details (start date - stop date) Never Smoker NA - NA Tobacco use other than smoking: Question Answer Notes Are you an other tobacco user? No Tobacco Control (Standard) Question Answer Notes Tobacco use: Nonsmoker Additional Findings: Tobacco non-user Current no nsmoker AUDIT-C (Standard) Question Answer Notes Did you have a drink containing alcohol in the p ast year? 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 confirmed Vital Signs Blood pressure diastolic 60 mm Hg 07/13/2024 Height 6 ft 1 in in 07/13/2024 Blood pressure systolic 120 mm Hg 07/13/2024 Weight 190 lbs 07/13/2024 BMI 25.06 kg/m2 07/13/2024 Encounters Encounter Location Date Provider Diagnosis [address] [address] 04/08/2024 Maddy Muhammad Achilles tendinitis of left lower extremity M76.62 ; Pain of left heel M79.672 ; 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 ; Bud's deformity of left heel M92.62 and Short Achilles tendon (acquired), left ankle M67.[address] [address] 07/13/2024 Robbi Cathi Pain in left foot M79.672 ; Plantar fasciitis of left foot M72.2 ; Calcaneal spur, left foot M77.32 ; Interstitial myositis of left foot M60.172 and Bursitis of left foot M77.[address] [address] 03/30/2024 Lubna Gil [address] [address] 04/05/2024 Maddy Muhammad [address] [address] 07/13/2024 Maddy Muhammad Assessments Encounter Date Diagnosis (ICD Code) Assessment Notes Treatment Notes Treatment Clinical Notes Section Notes 04/08/2024 Achilles tendinitis of left lower extremity (ICD-10 - M76.62) Patient Educated with: HEEL CORD STRETCHES.pdf (HEEL CORD STRETCHES.pdf) Patient Educated with: RICE THERAPY.pdf (RICE THERAPY.pdf) 07/13/2024 Pain in left foot (ICD-10 - M79.672) 07/13/2024 Plantar fasciitis of left foot (ICD-10 - M72.2) Patient Educated with: HEEL CORD STRETCHES.pdf (HEEL CORD STRETCHES.pdf) Patient Educated with: RICE THERAPY.pdf (RICE THERAPY.pdf) 07/13/2024 Calcaneal spur, left foot (ICD-10 - M77.32) 04/08/2024 Pain of left heel (ICD-10 - M79.672) 04/08/2024 Exostosis of left posterior calcaneus (ICD-10 - M77.32) 07/13/2024 Interstitial myositis of left foot (ICD-10 - M60.172) 07/13/2024 Bursitis of left foot (ICD-10 - M77.52) 04/08/2024 Bud's deformity of left heel (ICD-10 - M92.62) 04/08/2024 Short Achilles tendon (acquired), 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) Plan Of Treatment Pending Test Test Name Order Date X ray : Foot, left 3V 04/08/2024 Insurance Providers Payer Name Payer Address Payer Phone Subscriber Number Group Number Insured Name Patient Relationship to Insured Coverage Start Date Coverage End Date [facility] [address] [place] [address] [id number] Anupam Bartlett Self - patient is the insured Medical (General) History Medical History History ICD Code Hypertension Reflux ( GERD) Thyroid disorder Warts Chicken pox Back,Hip,and Knee pain Headaches/Migraines Surgical History Surgery Date(Month/Year) colonoscopy appendectomy endoscopy
--- OUTSIDE RECORDS SUMMARY | 2024-08-10 08:55 | XMS_ITS ---
Author Organization [facility] Address [address] [place] [address] Care Team Providers Care Director Perioperative Name Role Phone Chichi Ngo MD Primary Care Provider UnavailMaddy Mattson [phone] REASON FOR VISIT Comfort Plus Redi-T #F Encounters Encounter Location Date Provider Diagnosis [facility] [address] [place] [address] 07/13/2024 Maddy Muhammad Plan Of Treatment No Information Progress Notes * Anupam BARTLETT ADOB:1975 (49 yo M)Acc No.[id number]:07/13/2024 Patient:?Anupam BARTLETT :1975???Age:49 Y???Sex:Male Address:[address] [place], [address] * true * Date:? Generated for Printi ng/Faxing/eTransmitting on:?08/10/2024 08:55 AM EDT
--- OUTSIDE RECORDS SUMMARY | 2024-08-10 08:55 | XMS_ITS ---
[facility] Address [address] [facility] [address] Care Team Providers Care Physician Relations Manager Name Role Phone Chichi Ngo MD Primary Care Provider Maddy Siu Unavailable [phone] Robbi Winkler Unavailable [phone] Allergies Allergen (clinical drug ingredient) Drug/Non Drug Allergy documented on EMR Reaction Allergy Type Onset Date Status Mushroom mushroom (uncoded) Unknown Allergy A ctive valsartan Valsartan Unknown Drug Allergy Active REASON FOR VISIT Heel pain Medications Medication SIG (Take, Route, Fr equency, Duration) Notes Start Date End Date Status Levothyroxine Sodium Active Tadalafil Active amLODIPine Besylate Active Synthroid 150 MCG [...] Problem Status W/U Status Risk Notes Problem Plantar fasciitis of left foot (015484913444042 01) Plantar fasciitis of left foot (M72.2) Active confirmed Problem Interstitial myositis (21761431) 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) Active confirmed Vital Signs Height 6 ft 1 in in 07/13/2024 Weight 190 lbs 07/13/2024 BMI 25.06 kg/m2 07/13/2024 Blood pressure systolic 120 mm Hg 07/14/19 Blood pressure diastolic 60 mm Hg 025 Encounters Encounter Location Date Provider Diagnosis [facility] [address] [address] 07/13/2024 Robbi Winkler Pain in left foot M79.672 ; Plantar fasciitis of left foot M72.2 ; Calcaneal spur, left foot M77.32 ; Interstitial myositis of left foot M60.172 and Bursitis of left foot M77.52 Assessments Encounter Date Diagnosis (ICD Code) Assessment Notes Treatment Notes Treatment Clinical Notes Section Notes 07/13/2024 Pain in left foot (ICD-10 - M79.672) 07/13/2024 Plantar fasciitis of left foot (ICD-10 - M72.2) Patient Educated with: HEEL CORD STRETCHES.pdf (HEEL CORD STRETCHES.pdf) Patient Educated with: RICE THERAPY.pdf (RICE THERAPY.pdf) 07/13/2024 Calcaneal spur, left foot (ICD-10 - M77.32) 07/13/2024 Interstitial myositis of left foot (ICD-10 - M60.172) 07/13/2024 Bursitis of left foot (ICD-10 - M77.52) Plan Of Treatment Treatment Notes Assessment Notes Plantar fasciitis of left foot Patient E ducated with: HEEL CORD STRETCHES.pdf (HEEL CORD STRETCHES.pdf) Patient Educated with: RICE THERAPY.pdf (RICE THERAPY.pdf) Next Appt Details Follow Up: prn, Reason: Progress Notes * Anupam BARTLETT ADOB:1975 (49 yo M)Acc No.[id number]:07/13/2024 Progress Note Patient:?Anupam BARTLETT A Provider:?Robbi Winkler DPM :1975???Age:49 Y???Sex:Male Oniel e:07/13/2024 Address: [address] [id number] Pcp:Chichi Ngo MD Subjective: * Chief Complaints: * ???Heel pain * HPI: ???Heel pain:?Location:?Proximal plantar aspect of Heel, LEFT.?Duration:?several months.?Course:?worse.?Aggravated:?standing, walking, walking first thing in the morning/after rest.?Treatments:?rest/alter normal daily activity, change in shoes, ice, stretching, deep tissue massage.? * ROS:?General/Constitutional:?Nausea?denies.?Vomiting?denies.?Hunger Thirst?denies.?Loss appetite?denies.?Chills?denies.?Fatigue?denies.?Fever?denies.?Night Sweats?denies.?Unexplained weight loss?denies.?Unexplained [...] site.?Father: , poor circulation, diagnosed with Unspecified essential hypertension, Unspecified heart disease.?Paternal Grand Mother: diagnosed with Other malignant neoplasm of unspecified site.?Paternal Grand Father: diagnosed with Other malignant neoplasm of unspecified site.? * Social History:?Tobacco Use:?Tobacco use other than smoking?Are you an other tobacco user??No ?Tobacco Control (Standard)?Tobacco use:?Nonsmoker ?Additional Findings: Tobacco non-user?Current nonsmoker ???Drugs/Alcohol:?Drugs?Have you used drugs other than those for medical reasons in the past 12 months??No ???Drug/Alcohol:?AUDIT-C (Standard)?Did you have a drink containing alcohol in the past year??No ?Points?0 ?Interpretation?Negative * Medications:?TakingamLODIPin e Besylate Levothyroxine Sodium Tadalafil Medrol lynne 4mg Tablet Therapy Pack as directed orally as directed Taking amLODIPine Besylate Taking Levothyroxine Sodium Taking Tadalafil Taking Medrol lynne 4mg Tablet Therapy Pack as directed orally as directed UnknownSynthroid 150 MCG Tablet TAKE 1 TABLET [...] Verified] Objective: * Vitals:?Ht:6 ft 1 in, Wt:190 , BMI:25.06, Shoe size:1112, BP:120/60mm Hg, Ht-cm: 185.42 cm, Wt-k.18 kg. * Examination: ???Heel Pain: ?INSPECTION:? Pain on Palpation to Plantar Fascia med. and central bands, intrinsic musc., infra-calcaneal bursa, and med calc tubercle , LEFT foot, No pain: posterior/superior heel, achilles bursa/tendon, sinus tarsi, peroneals, or with lateral heel compression; no limited STJ ROM, calor, or ecchymosis.?Orthopedic: ?MUSCLE STRENGTH:?5/5 all groups in a symmetrical fashion , B/L.?GAIT ABNORMALITY:?antalgic.?FOOT MORPHOLOGY:? Pes Planus structure, Decreased Ankle joint dorsiflexion ROM, knee extended.?FOOTWEAR:?shoe gear properties exacerbate patients foot/toe deformity.?X-Rays - IMAGING REPORT: ?Views:?Are reviewed with the Pt from last visit.?Findings:? normal bone and soft tissue density consistent for patients age and sex, navicular/cuneiform plantar subluxation with anterior cyma line, positive infra-calcaneal exostosis, no coalitions identified.?Foot structure:? reveals excess pronation with, anterior break in cyme line, increased talar declination, decreased calcaneal inclination.?Fracture:?Negative fractures identified.?Neurological: ?SENSORY:?Neurological exam reveals intact sensorium, pain sensation normal, vibration sensation intact, pinprick sensation is normal in the lower extremities, Pt denies, anesthesia, burning, paresthesia, tingling, B/L.?TINEL'S COMPRESSION:?Negative tarsal tunnel, kiana pedis, and medial calcaneal nerves.?DEEP TENDON REFLEXES:?Achilles, 2/4, B/L.?General Examination: ?GENERAL APPEARANCE:?Reveals a pleasant, alert, well-nourished, well- developed, well hydrated individual, who demonstrates proper attention to hygiene/body habitus, and is in no acute distress, Pt serves as own?historian for office visit today.?ORIENTED:?person, place, and time.?Vascular: ?DP PULSES (B):?3/4, B/L.?PT PULSES (B):?3/4, B/L.?CAPILLARY FILL TIME:?immediate, all digits, B/L.?TROPHIC CONDITION-TEXTURE/ELASTICITY/TURGOR/HAIR GROWTH (B):?normal, B/L.?TEMPERTURE GRADIENT (C):?warm to cool, proximal to distal, B/L.?PIGMENTATION:?normal, B/L.?EDEMA (C):?absent, B/L.?Dermatologic: ?SKIN FINDINGS:?Skin exam reveals normal texture, elasticity, and turgor. There are no masses. The interspaces are clear.? Assessment: * Assessment: 1.?Pain in left foot - M79.6 72???2.?Plantar fasciitis of left foot - M72.2 (Primary)???Specify :Acute problem, Complicated w/ Multiple Tx Options(4),Dx New problem, Prognosis Uncertain (4)???3.?Calcaneal spur, left foot - M77.32???4.?Interstitial myositis of left foot - M60.172???5.?Bursitis of left foot - M77.52??? Plan: * Treatment: * Procedure Codes:? * Preventive Medicine:? ??Counseling:?Discussion:?-14: Office or other outpatient visit for the evaluation and management of an established patient, which required a medically appropriate history [...] encouraged the patient to call the office.?Heel pain:?FASCIITIS: I explained to the patient the possible etiologies of Plantar Fasciitis including foot type/shoegear/activity level/exercise routine and the risks/benefits of all the different treatment options for heel pain including: No treatment at all, Rest, Ice, NSAIDs(only if well tolerated after meals), New/supportive Shoegear, Strappings and Tapings, Stretching exercises, Deep Tissue Massage, Heel cups/cushions, Arch support/shoe inserts, Custom orthoses, Topical analgesics including Aspercream/Voltaren gel, Night splint AFO for am stiffness, Cortisone injection therapy, Cast boot with crutches/cane/or walker for assisted ambulation, Physical Therapy, EPAT/ESWT, Interfil injection therapy, as well as surgical [place]/Endoscopic Fasciitomy surgical procedures if needed. Recommendations were made [...] of each option were discussed and the patients questions re: types of shoegear, custom vs prefabricated inserts, activity level, PO vs Topical medications (and their respective potential complications/drug interactions/side effects), and consistency in home treatment regimens for optimal success were answered to their satisfaction. Literature detailing plantar fasciitis and the various treatment options were dispensed and reviewed.?Orthotics:?I explained to the patient the benefits of OT use. I explained that orthoses are medically necessary to decrease the foot pain through proper mechanical control, support of their foot , decrease stretch/strain on the plantar fascia, Prefabricated orthoses ( COMFORT PLUS ( F ), ), were dispensed. The inserts were comfortably fit to the patients feet in both weight-bearing and non-weight bearing attitudes. The patient was instructed to increase the amount of time they were wearing the inserts, starting with one hour the first day and gradually increasing the amount of time worn until they are using them multimedia manager and in all activities. They were asked to call the office if any signs of irritation were noted such as redness, blistering or callous formation. Instuctions were given for their usage and proper break-in/wear/care. Pt expressed comfort with and tolerance to inserts dispensed.?P.R.I.C.E.:?The patient was counseled on the use of P.R.I.C.E. and NSAIDS (if well tolerated) to aid in the recovery from their painful condition.?Shoe Gear Counseling:?The patient and I reviewed the [...] the patients injury/diagnosis were discussed and demonstrated, handouts were dispensed.? ??Screening/Special Tests:?Fall Risk?Screening:?No falls in the past year ?FALLS: Screening for Future Fall Risk?Have you had any falls with injury in the past year??No * Follow Up:?prn * Images: * Sign off status: Completed true * Provider:?Robbi Winkler DPM Date:?2024 Generated for Lisa arnold/Jorge/Festus on:?08/10/2024 08:55 AM EDT History and Physical Notes * HPI (History of Present Illness) Category Sub-Category Detail Notes Category Not es Heel pain Duration: several months Location: Proximal plantar asp ect of Heel, LEFT Aggravated: standing, walking, w alking first thing in the morning/after rest Course: worse Treatments: rest/alter normal da angel luis activity, change in shoes, ice, stretching, deep tissue massage Examination Category Sub-Category Detail Notes Category Not es Neurological SENSORY: Neurological exa m reveals intact sensorium, pain sensation normal, vibration sensation intact, pinprick sensation is normal in the lower extremities, Pt denies, anesthesia, burning, paresthesia, tingling, B/L TINEL'S COMPRESSION: Negative tarsal criselda melinda, kiana pedis, and medial calcaneal nerves DEEP TENDON REFLEXES: Achilles, 2/4, B/L Dermatologic SKIN FINDINGS: Skin exam reveal s normal texture, elasticity, and turgor. There are no masses. The interspaces are clear Orthopedic GAIT ABNORMALITY: antalgic FOOT MORPHOLOGY: Pes Planus structure , Decreased Ankle joint dorsiflexion ROM, knee extended FOOTWEAR EVALUATION: shoe gear propertie s exacerbate patients foot/toe deformity MUSCLE STRENGTH: 5/5 all groups in a [...] density consistent for patients age and sex, navicular/cuneiform plantar subluxation with anterior cyma line, positive infra-calcaneal exostosis, no coalitions identified Fracture: Negative fractures i dentified Foot structure: reveals excess prona tion with, anterior break in cyme line, increased talar declination, decreased calcaneal inclination Views: Are reviewed with batool williamson Pt from last visit Heel Pain INSPECTION: Pain on Palpatio n to Plantar Fascia med. and central bands, intrinsic musc., infra-calcaneal bursa, and med calc tubercle , LEFT foot, No pain: posterior/superior heel, achilles bursa/tendon, sinus tarsi, peroneals, or with lateral heel compression; no limited STJ ROM, calor, or ecchymosis
--- OUTSIDE RECORDS SUMMARY | 2024-08-10 08:55 | XMS_ITS ---
Author Organization [facility] Address [address] [place] [address] Care Team Providers Care Manager Distribution Name Role Phone Chichi Ngo MD Primary Care Provider Unavaila Maddy Booth [phone] Berry Encounters Encounter Location Date [facility] [address] [place] [address] 05/25/2024 Maddy Muhammad Plan Of Treatment No Information Progress Notes * Anupam BARTLETT ADOB:1975 (49 yo M)Acc No.[id number]:05/25/2024 Progress Notes Patient:?Anupam BARTLETT Provider:?Maddy Muhammad DPM :1975???Age:49 Y???Sex:Male Oniel e:05/25/2024 Address:[address] [id number] Pcp:Chichi Ngo MD Subjective: * Chief Complaints: [...] Muhammad DPM Date:?0 05/25/2024 Generated for Lisa arnold/Jorge/Vanessaitting on:?08/10/2024 08:55 AM EDT
== END 2024-08-10 09:24 | disposition home or self-care (01) ==
LOC: HO.HUSH 08:35
PROVIDERS: PCP Internal Medicine; Visit Provider Urology
DX: R33.9 Retention of urine, unspecified (principal); N52.9 Male erectile dysfunction, unspecified
CPT/HCPCS: 99214

== ENCOUNTER 2024-10-06 06:02 | Outpatient (REF) | payer BC, SELFPAY ==
[2024-10-06 10:19] LABS: Appearance Urine Clear; Color Urine Yellow; Glucose Urine UA Negative (Negative); Leukocyte Esterase Urine Negative (Negative); Nitrite Urine Negative (Negative); Urine Blood Negative (Negative); Urine Ketones Negative (Negative); Urine Protein Negative (Neg-Trace)
[2024-10-06 10:22] LABS: MANUAL DIFF FLAG NO
[2024-10-06 10:23] LABS: Bacteria Urine None Seen (None Seen); Hyaline Casts Urine 0-2 /LPF (0-2); RBC Urine 0-2 /HPF (0-2); Squamous Epithelial Cell Urine 0-2 /HPF (0-2); WBC Urine 0-5 /HPF (0-5)
[2024-10-06 10:26] LABS: Basophils Percent Auto 0.6 % (0-2); Eosinophils Absolute Auto 0.1 X10*3/uL (0.0-0.4); Eosinophils Percent Auto 2.6 % (0-4); Hematocrit 39.8 % (42.0-52.0); Hemoglobin 13.4 g/dl (14.0-18.0); Lymphocytes Absolute Auto 1.5 X10*3/uL (1.2-4.9); Lymphocytes Percent Auto 41.5 % (20-40); Mean Corpuscular HGB Conc 33.7 g/dl (31.0-36.0); Mean Corpuscular Hemoglobin 30.2 pg (27.0-33.0); Mean Corpuscular Volume 89.6 fL (80.0-98.0); Mean Platelet Volume 10.4 fL (9.4-12.4); Monocytes Absolute Auto 0.3 X10*3/uL (0.1-1.2); Monocytes Percent Auto 8.9 % (2-11); Neutrophils Absolute Auto 1.6 x10*3/uL (2.0-8.3); Neutrophils Percent Auto 46.4 % (45-73); Platelet Count 207 X10*3/uL (160-400); Red Blood Count 4.44 X10*6/uL (4.60-5.80); Red Cell Distribution Width 12.6 % (11.0-16.0); White Blood Count 3.5 X10*3/uL (4.8-10.8)
[2024-10-06 10:42] LABS: Alanine Aminotransferase 23 U/L (0-40); Albumin Level 4.6 g/dL (3.5-5.0); Alkaline Phosphatase 56 U/L (39-117); Anion Gap 8 (12-20); Aspartate Amino Transferase 26 U/L (5-37); Bilirubin Total 0.5 mg/dL (0.0-1.0); Blood Urea Nitrogen 15 mg/dL (9-16); Calcium 9.7 mg/dL (8.4-10.2); Carbon Dioxide 25 mmol/L (22-29); Chloride 110 mmol/L (96-108); Cholesterol 164 mg/dL (<200); Estimated Glomerular Filt Rate > 60; Glucose Fasting 102 mg/dL (60-99); HDL Cholesterol 49 mg/dL (>40); LDL Cholesterol Calculated 96 mg/dL (<100); Potassium 4.4 mmol/L (3.3-5.1); Sodium 139 mmol/L (135-145); Total Protein 7.1 g/dL (6.5-8.0); Triglycerides 95 mg/dL (<150)
[2024-10-06 11:01] LABS: PSA,Total (Free>4and<10) 1.62 ng/mL (0.00-4.00)
[2024-10-06 11:04] LABS: TSH reflex Free T4 1.25 uIU/mL (0.32-4.0)
== END 2024-10-06 06:03 | disposition home or self-care (01) ==
LOC: HO.HMGCLDS 06:02
PROVIDERS: PCP Internal Medicine; Visit Provider Internal Medicine
DX: Z00.00 Encounter for general adult medical examination without abnormal findings (principal); E03.9 Hypothyroidism, unspecified; I10 Essential (primary) hypertension; Z12.5 Encounter for screening for malignant neoplasm of prostate
CPT/HCPCS: 36415; 80053; 80061; 81001; 84153; 84443; 85025

== ENCOUNTER 2024-10-13 11:40 | Outpatient (REF) | payer BC, SELFPAY ==
[2024-10-13 16:36] LABS: Iron 74 mcg/dL (45-160); Percent Iron Saturation 27 % (15-50); Total Iron Binding Capacity 275 mcg/dL (228-428); Unsaturated Iron Binding 201 ug/dL
[2024-10-13 17:19] LABS: Folate 2.6 ng/mL (> or = 4.0); Vitamin B12 347 pg/mL (200-900)
[2024-10-19 08:59] LABS: IgA 191 mg/dL (47-310); IgG 1141 mg/dL (600-1640); IgM 78 mg/dL (50-300)
== END 2024-10-13 11:41 | disposition home or self-care (01) ==
LOC: HO.HMGCLDS 11:40
PROVIDERS: PCP Internal Medicine; Visit Provider Internal Medicine
DX: Z00.00 Encounter for general adult medical examination without abnormal findings (principal); D64.9 Anemia, unspecified; I10 Essential (primary) hypertension; R33.9 Retention of urine, unspecified; Z79.899 Other long term (current) drug therapy; Z13.30 Encounter for screening examination for mental health and behavioral disorders, unspecified; Z13.31 Encounter for screening for depression
CPT/HCPCS: 36415; 82607; 82746; 82784; 83540; 86334; 96127

== ENCOUNTER 2024-10-13 11:40 | Outpatient (AMB) | payer BC, SELFPAY ==
--- OUTSIDE RECORDS SUMMARY | 2024-05-25 12:00 | XMS_ITS ---
Author Organization [facility] Address [address] [place] [address] Care Team Providers Care Manufacturing Management Associate Name Role Phone Chichi Ngo MD Primary Care Provider UnavailMaddy Mattson [phone] Berry Encounters Encounter Location Date [facility] [address] [place] [address] 05/25/2024 Maddy Muhammad Plan Of Treatment No Information Progress Notes * Anupam BARTLETT ADOB:1975 (49 yo M)Acc No.[id number]:05/25/2024 Progress Notes Patient: Anupam RODRIGUEZ Provider: Oumar [...] DPM Date: 0 05/25/2024 Generated for Lisa arnold/Jorge/Vanessaitting on: 0 10/13/2024 01:57 PM EDT
[2024-10-13 11:57] VITALS: BP 122/80; PULSE 61; RESP 18; O2SAT 99; BMI 26.1
--- NOTE | 2024-10-13 11:57 | A.OFFPC_ITS ---
Vital Signs 10/13/24 11:57 Height 6 ft 1 in Weight 198 lb BMI 26.1 BP 122/80 Blood Pressure Location Lt brachial Position Sitting Respiration 18 Pulse 61 Pulse Source Pulse Oximeter Pulse Oximetry (%) 99 Oxygen Delivery Method Room Air Intake Visit Reasons: Annual PE Intake Note: Pt is here today for PE. Allergies valsartan Allergy (Unknown, Verified 10/13/24 11:58) headache Medication List - Last Reconciled 10/13/24 by Chichi Ngo MD amlodipine 10 mg PO DAILY levothyroxine 112 mcg PO DAILY tadalafil 5 mg PO DAILY 90 days Tobacco use date assessed: 10/13/24 Dental Screening Dental Screen Date: 07/02/24 HPI Annual PE HPI Details Patient presents for physical PFSH Medical History Urinary retention Increased frequency of urination Right calf pain Annual physical exam HTN (hypertension) Hypothyroid H/O exercise stress test GERD (gastroesophageal reflux disease) Nadya's disease Surgical History Hx of appendectomy Hx of esophagogastroduodenoscopy Hx of colonoscopy Family History Father No problems noted. Mother No problems noted. 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), [employer] in [employer] Housing: House Patient Tobacco Use Status: Former Tobacco user e-Cigarette/Vaping Use: Never Used Second Hand Smoke Exposure: No service: No Current occupational status: employed Cognitive needs: No Hearing needs: No Vision needs: Yes Questionnaire PHQ-9 Over the last 2 weeks, how often have you been bothered by any of the following problems? 1. Little interest or pleasure in doing things: not at all 2. Feeling down, depressed, or hopeless: not at all 3. Trouble falling or staying asleep, or sleeping too much: not at all 4. Feeling tired or having little energy: several days 5. Poor appetite or overeating: not at all 6. Feeling bad about yourself - or that you are a failure or have let yourself or your family down: not at all 7. Trouble concentrating on things, such as reading the newspaper or watching television: not at all 8. Moving or speaking so slowly that other people could have noticed. Or the opposite - being so fidgety or restless that you have been moving around a lot more than usual: not at all 9. Thoughts that you would be better off or of hurting yourself in some way: not at all Total score: 1 Depression Screening Interpretation: Negative Depression Screening Done: Yes 35794 - PHQ-9 Billing: Yes Source: Developed by Drs. Zeb Ledesma, Aicha Freeman, Jad Irving and colleagues, with an educational di from [employer]. Thrive Questionnaire Date Thrive assessed: 10/13/24 I am a: Patient What is your living situation today?: I have a steady place to live Within the past 12 months, did the food you bought not last and you didn't have the money to get more?: Never true Within the past 12 months, did you worry whether your food would run out before you got money to buy more?: Never true Do you have trouble paying for medicines?: No Do you have trouble getting transportation to medical appointments?: No Do you have trouble paying your heating and electricity bill?: No Do you have trouble taking care of your child, family member or friend?: No Do you have trouble with day-to-day activities such as bathing, preparing meals, shopping, managing finances, etc.?: No Are you currently unemployed and looking for a job?: No Are you interested in more education?: No Please select the resources that you would like help with: None Currently or been in a relationship where the following occur: No concerns reported THRIVE Score: 0 AUDIT C Alcohol Use Questionnaire (AUDIT-C) 1. How often do you have a drink containing alcohol?: Monthly or less 2. How many drinks containing alcohol do you have on a typical day when you are drinking?: 1 or 2 3. How often do you have six or more drinks on one occasion?: Never Total Score: 1 YIN-7 AMB Questionnaire YIN-7 Date YIN - 7 assessed: 10/13/24 Feeling nervous, anxious, or on edge: 1 = Several days Not being able to stop or control worryin = Not at all Worrying too much about different things: 0 = Not at all Trouble relaxin = Several days Being so restless that it is hard to sit still: 0 = Not at all Becoming easily annoyed or irritable: 1 = Several days Feeling afraid as if something awful might happen: 0 = Not at all Total YIN-7 score (0-4 normal; 5-9 mild; 10-14 moderate; 15-21 severe): 3 Source: Developed by Drs. Zeb Ledesma, Aicha Freeman, Jad Irving and colleagues, with an educational di from [employer]. YIN-7 Assessment Billing YIN-7 Assessment Tool: YIN-7 Assessment 35830 Review of Systems Const All systems reviewed & are unremarkable except as noted in HPI and below Eyes Reports no additional complaints ENT Reports no additional complaints Card Reports no additional complaints Resp Reports no additional complaints GI Reports no additional complaints Reports no additional complaints Physical exam (Primary Care) Vital Signs: Last Vital Signs Pulse 61 10/13/24 11:57 Resp 18 10/13/24 11:57 BP 122/80 10/13/24 11:57 Pulse Ox 99 10/13/24 11:57 Oxygen Delivery Method Room Air 10/13/24 11:57 BMI result Body Mass Index 26.1 Tobacco/Smoking Status: Tobacco use Status Tobacco use date assessed 10/13/24 10/13/24 11:58 Patient Tobacco Use Status Former Tobacco user 10/13/24 11:58 e-Cigarette/Vaping Use Never Used 10/13/24 11:58 PHQ-9: PHQ-9 Score PHQ-9: Total score 1 10/13/24 12:05 Depression Screening Interpretation: Negative Thrive Assessment: Date of Thrive Assessment Date Thrive assessed 10/13/24 10/13/24 12:05 Currently or been in a relationship where the following occur: No concerns reported Const General: no acute distress HENMT Head: Yes normal to inspection Throat: Yes posterior oropharynx normal Eyes General: appearance normal, both eyes and all related structures Neck Neck: Yes no lymphadenopathy and Yes supple Resp Effort & Inspection: normal respiratory effort Auscultation: clear to auscultation bilaterally Cardio Rhythm: regular rhythm Heart sounds: S1 normal heart sound present and S2 normal heart sound present GI Inspection: Yes normal to inspection Palpation (GI): Soft to palpation Percussion: Yes normal to percussion Auscultation: normal bowel sounds Coding Level of Care Code Est Pt Prev Care 40-64y(98206) Diagnoses Anemia D64.9 HTN (hypertension) I10 Annual physical exam Z00.00 Urinary retention R33.9 Additional Codes YIN-7 Assessment Billing - YIN-7 Assessment Tool: YIN-7 Assessment 82370 ([id number]) PHQ-9 - 48336 - PHQ-9 Billing: Yes ([id number]) Assessment & Plan Assessment & Plan (1) Anemia: Code(s): D64.9 - Anemia, unspecified Category: Medical Plan: Check iron studies and B12 today, repeat CBC in 1 month, follow-up in 6 months (2) HTN (hypertension): Code(s): I10 - Essential (primary) hypertension Category: Medical Plan: Continue amlodipine (3) Annual physical exam: Code(s): Z00.00 - Encounter for general adult medical examination without abnormal findings Category: Medical Plan: Well-balanced diet regular physical activity discussed with the patient. He had negative colonoscopy 2 years ago (4) Urinary retention: Comment: Follow-up with UROLOGY Code(s): R33.9 - Retention of urine, unspecified Category: Medical Plan: Follow-up with urology Orders: Orders Vitamin B12 and Folate Today D64.9 - Anemia, unspecified Immunofixation Pnl, Serum Today D64.9 - Anemia, unspecified Complete Blood Count Auto Diff 1 Month D64.9 - Anemia, unspecified IRON PROFILE Today D64.9 - Anemia, unspecified Comprehensive [place]. Panel Fast 6 Months D64.9 - Anemia, unspecified Complete Blood Count Auto Diff 6 Months D64.9 - Anemia, unspecified TSH reflex Free T4 6 Months D64.9 - Anemia, unspecified
== END 2024-10-13 12:42 | disposition home or self-care (01) ==
LOC: HO.HMCC 11:41
PROVIDERS: PCP Internal Medicine; Visit Provider Internal Medicine
DX: D64.9 Anemia, unspecified (principal); I10 Essential (primary) hypertension; Z00.00 Encounter for general adult medical examination without abnormal findings; R33.9 Retention of urine, unspecified

== ENCOUNTER 2024-11-12 07:57 | Outpatient (REF) | payer BC, SELFPAY ==
--- OUTSIDE RECORDS SUMMARY | 2024-05-25 12:00 | XMS_ITS ---
Author Organization [facility] Address [address] [place] [address] Care Team Providers Care Cloth Edge Singer Name Role Phone Chichi Ngo MD Primary Care Provider UnavailMaddy Mattson [phone] Berry Encounters Encounter Location Date [facility] [address] [place] [phone] 05/25/2024 Maddy Muhammad Plan Of Treatment No Information Progress Notes * Anupam BARTLETT ADOB:1975 (49 yo M)Acc No.[id number]:05/25/2024 Progress Notes Patient: Anupam RODRIGUEZ Provider: Oumar [...] 05/25/2024 Generated for Lisa arnold/Jorge/Vanessaitting on: 0 11/12/2024 07:58 AM EDT
[2024-11-12 10:16] LABS: MANUAL DIFF FLAG NO
[2024-11-12 10:20] LABS: Hematocrit 43.1 % (42.0-52.0); Hemoglobin 14.4 g/dl (14.0-18.0); Imm Gran Abs Auto 0.01 X10*3/uL (0.00-0.03); Imm Gran Pct Auto 0.2 % (0.0-0.4); Lymphocytes Absolute Auto 1.1 X10*3/uL (1.2-4.9); Mean Corpuscular HGB Conc 33.4 g/dl (31.0-36.0); Mean Corpuscular Hemoglobin 29.9 pg (27.0-33.0); Mean Corpuscular Volume 89.6 fL (80.0-98.0); NRBC Abs Auto 0.000 X10*3/uL (0.0-0.012); NRBC Pct Auto 0.0 /100WBC (0.0-0.2); Platelet Count 200 X10*3/uL (160-400); Red Blood Count 4.81 X10*6/uL (4.60-5.80); White Blood Count 4.1 X10*3/uL (4.8-10.8)
== END 2024-11-12 07:58 | disposition home or self-care (01) ==
LOC: HO.HMGCLDS 07:57
PROVIDERS: PCP Internal Medicine; Visit Provider Internal Medicine
DX: D64.9 Anemia, unspecified (principal)
CPT/HCPCS: 36415; 85025

== ENCOUNTER 2025-03-07 07:29 | Outpatient (AMB) | payer BC, SELFPAY ==
[2025-03-07 07:31] VITALS: BP 110/70; PULSE 56; O2SAT 98; BMI 26.4
--- NOTE | 2025-03-07 07:31 | MHC.OFFWIV ---
Intake Vital Signs 03/07/25 07:31 Height 6 ft 1 in Weight 200 lb BMI 26.4 BP 110/70 Blood Pressure Location Lt brachial Position Sitting Pulse 56 Pulse Source Pulse Oximeter Pulse Oximetry (%) 98 Oxygen Delivery Method Room Air Intake Visit Reasons: EP-lower back pain Intake Note: Patient presents c/o lower back pain x2 days. Patient states he had a herniated disc a whle ago & this feels like the same thing. Patient Tobacco Use Status: Former Tobacco user Allergies valsartan Allergy (Unknown, Verified 03/07/25 07:34) headache Do you need a note to return to daycare/school/sports/work: No HPI HPI Comments History of Present Illness Details History - The patient is a 49-year-old male presenting with low back pain. - The pain began on Friday night while the patient was asleep, with no preceding physical activity or trauma reported. - The pain is located in the lower back on both sides, radiating to the upper buttocks, with no numbness or tingling reported. - The patient has a history of a herniated disc but reports no recent exacerbation of symptoms related to this condition. - The patient has attempted self-management with aspirin, ibuprofen, and topical treatments like Icy Hot, with minimal relief. - He denies saddle anesthesia, numbness, tingling, incontinence of urine or stool, abd pain, n/v/d, dysuria, or hematuria. Physical Exam General: cooperative, healthy appearing and comfortable, patient oriented x3 Head: Normal to inspection, normocephalic/atraumatic Effort & Inspection: Normal respiratory effort and able to speak in complete sentences. Cardiac: RRR, no M/R/G noted. Normal S1 and S2. Respiratory: Clear to auscultation bilaterally. No w/r/r noted. Back/spine: No CVA tenderness bilaterally. Cervical, thoracic and lumbar spine normal to inspection. Cervical ROM normal, no midline spinous tenderness noted. Thoracic ROM normal, lumbar ROM normal. No midline vertebral spinous tenderness noted. No step offs noted. No TTP of the thoracic or lumbar paraspinous or paravertebral muscles. No SI joint tenderness noted. DTR are 2+ on the lower extremities noted. Ambulates with a steady gait. Extremities: Straight leg raise test negative on right; Straight leg raise test negative on left; motor strength normal 5/5 bilaterally. Neuro: Sensation intact. Patient was informed and verbally consented to the use of an ambient scribe for clinic note documentation during this visit. [facility] Medical History Urinary retention Increased frequency of urination Right calf pain Annual physical exam HTN (hypertension) Hypothyroid H/O exercise stress test GERD (gastroesophageal reflux disease) Nadya's disease Surgical History Hx of appendectomy Hx of esophagogastroduodenoscopy Hx of colonoscopy Family History Father No problems noted. Mother No problems noted. 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 Patient Tobacco Use Status: Former Tobacco user e-Cigarette/Vaping Use: Never Used Second Hand Smoke Exposure: No service: No Current occupational status: employed Cognitive needs: No Hearing needs: No Vision needs: Yes Review of Systems Const All systems reviewed & are unremarkable except as noted in HPI and below Physical Exam Vital Signs: Last Vital Signs Pulse 56 03/07/25 07:31 BP 110/70 03/07/25 07:31 Pulse Ox 98 03/07/25 07:31 Oxygen Delivery Method Room Air 03/07/25 07:31 BMI result Body Mass Index 26.4 Assessment & Plan Assessment & Plan (1) Low back pain: Code(s): M54.50 - Low back pain, unspecified Qualifiers: Chronicity: acute Back pain laterality: bilateral Sciatica presence: without sciatica Qualified Code(s): M54.50 - Low back pain, unspecified Plan Most likely strain vs sciatica vs herniation vs arthritis Plan - Prescribe an anti-inflammatory medication and a muscle relaxant to manage the low back pain. - Advise the use of a heating pad and monitoring of symptoms for any changes, such as burning sensations or incontinence, which would necessitate further evaluation. - Consider a referral for physical therapy if symptoms do not improve, as part of the process to potentially obtain an MRI if necessary. Medications: New cyclobenzaprine 5 mg PO Q8H PRN 20 tabs 0RF Muscle Spasm naproxen 500 mg PO Q12H PRN 20 tabs 0RF pain 7 days Coding Level of Care Code Est Pt Level 4 (36202) Diagnoses Acute bilateral low back pain without sciatica M54.50 Chronicity: acute Back pain laterality: bilateral Sciatica presence: without sciatica
== END 2025-03-07 08:23 | disposition home or self-care (01) ==
PROVIDERS: PCP Internal Medicine; Visit Provider Physician Assistant Medical
DX: M54.50 Low back pain, unspecified (principal)

== ENCOUNTER 2025-04-07 07:15 | Outpatient (AMB) | payer BC, SELFPAY ==
--- OUTSIDE RECORDS SUMMARY | 2024-05-25 11:00 | XMS_ITS ---
Author Organization [facility] Address [address] [place] [address] Care Team Providers Care Supervising Fire Marshal Name Role Phone Chichi Ngo MD Primary Care Provider UnavailMaddy Mattson [phone] Berry Encounters Encounter Location Date [facility] [address] [place] [phone] 05/25/2024 Maddy Muhammad Plan Of Treatment No Information Progress Notes * Anupam BARTLETT ADOB:1975 (49 yo M)Acc No.[id number]:05/25/2024 Progress Notes Patient: Anupam RODRIGUEZ Provider: Oumar [...] 05/25/2024 Generated for Lisa arnold/Jorge/Festus on: 1 06/08/2024 07:16 AM EST
--- OUTSIDE RECORDS SUMMARY | 2025-04-07 07:17 | XMS_ITS | Patient Health Record ---
[facility] Organization [facility] Address [address] [place] [address] Care Team Providers Care Scouring Pads Supervisor Name Role Phone Chichi Ngo MD Primary Care Provider UnavailMaddy Mattson Unavailable [phone] Robbi Winkler Unavailable [phone] Allergies Allergen (clinical drug ingredient) Drug/Non Drug [...] Referring Provider Last Name Jeni [facility] Referred Provider Robbi Winkler Referred Address [address] ,[place], [place],[address], Referred Provider Specialty Podiatry Referral Priority Routine Medications Medication SIG (Take, Route, Fr equency, Duration) Notes Start Date End Date Status Levothyroxine Sodium Active Tadalafil Active amLODIPine Besylate Active Medrol lynne 4mg as directed orally a s directed; Duration: 6 days 04/08/2024 Activ e Synthroid 150 MCG TAKE 1 TABLET BY JAMES TH EVERY DAY Oral; Duration: 90 Unknown Omeprazole 20 MG TAKE ONE CAPSULE BY MOUTH EVERY DAY Oral; Duration: 90 Unk nown Social History Tobacco Use: Social History Observation [...] Notes 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 Problem Plantar fasciitis of left foot (71789884506748311) Plantar fasciitis of left foot (M72.2) Active confirmed Problem Interstitial myositis (38804557) 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) Active confirmed Vital Signs Blood pressure diastolic 60 mm Hg 07/13/2024 Height 6 ft 1 in in 07/13/2024 Blood pressure systolic 120 mm Hg 07/13/2024 Weight 190 lbs 07/13/2024 BMI 25.06 kg/m2 07/13/2024 Encounters Encounter Location Date Provider Diagnosis [address] [address] 04/08/2024 Maddy Muhammad Achilles tendinitis of left lower extremity M76.62 ; Pain of left heel M79.672 ; 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 ; Bud's deformity of left heel M92.62 and Short Achilles tendon (acquired), left ankle M67.[address] [address] 07/13/2024 Robbi Cathi Pain in left foot M79.672 ; Plantar fasciitis of left foot M72.2 ; Calcaneal spur, left foot M77.32 ; Interstitial myositis of left foot M60.172 and Bursitis of left foot M77.[address] [place] [address] 07/13/2024 Maddy Muhammad Assessments Encounter Date Diagnosis [...] Insured Coverage Start Date Coverage End Date [facility] [address] [place] [address] [phone] [id number] Anupam Bartlett Self - patient is the insured Medical (General) History Medical History History ICD Code Hypertension Reflux ( GERD) Thyroid disorder Warts Chicken pox Back,Hip,and Knee pain Headaches/Migraines Surgical History Surgery Date(Month/Year) colonoscopy appendectomy endoscopy
[2025-04-07 07:22] VITALS: BP 128/76; PULSE 92; TEMP 36.4; O2SAT 99; BMI 26.5
--- NOTE | 2025-04-07 07:22 | MHC.OFFWIV ---
Intake Vital Signs 04/07/25 07:22 Height 6 ft 1 in Weight 201 lb BMI 26.5 BP 128/76 Blood Pressure Location Rt brachial Position Sitting Pulse 92 Pulse Source Pulse Oximeter Temp 97.6 F Temp Source Oral Pulse Oximetry (%) 99 Oxygen Delivery Method Room Air Intake Visit Reasons: EP blood in urine Intake Note: Patient presents c/o blood in urine & mild burning this morning. Patient Tobacco Use Status: Former Tobacco user Allergies valsartan Allergy (Unknown, Verified 04/07/25 07:27) headache HPI HPI Comments History of Present Illness Details 49-year-old male presents to the walk-in clinic with complaint of one episode of gross hematuria. Patient reports that this morning, during urination, he noticed a large amount of blood in the toilet bowl after voiding. He denies any prior history of hematuria. Denies fevers, chills, nausea, vomiting, abdominal pain, flank pain, dysuria, urinary frequency, urgency, hesitancy, nocturia, constipation, or diarrhea. Denies any history of kidney stones. Patient is followed by Urology (Dr. Liz) for erectile dysfunction; next scheduled appointment is 07/2025. No recent trauma reported. [facility] Medical History (Updated 04/07/25 @ 07:51 by Ivone Rendon NP) Hematuria Urinary retention Increased frequency of urination Right calf pain Annual physical exam HTN (hypertension) Hypothyroid H/O exercise stress test GERD (gastroesophageal reflux disease) Nadya's disease Surgical History Hx of appendectomy Hx of esophagogastroduodenoscopy Hx of colonoscopy Family History Father No problems noted. Mother No problems noted. 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 Patient Tobacco Use Status: Former Tobacco user e-Cigarette/Vaping Use: Never Used Second Hand Smoke Exposure: No service: No Current occupational status: employed Cognitive needs: No Hearing needs: No Vision needs: Yes Review of Systems Const All systems reviewed & are unremarkable except as noted in HPI and below Physical Exam Vital Signs: Last Vital Signs Temp 97.6 F 04/07/25 07:22 Pulse 92 04/07/25 07:22 BP 128/76 04/07/25 07:22 Pulse Ox 99 04/07/25 07:22 Oxygen Delivery Method Room Air 04/07/25 07:22 BMI result Body Mass Index 26.5 Const General: no acute distress Nutritional Appearance: well nourished Orientation/consciousness: patient oriented x3 Resp Effort & Inspection: normal respiratory effort Cardio Rate: regular rate General: Yes no CVA tenderness Back/Spine/Pelvis Back: no CVA tenderness Neuro General: patient oriented x3, gait normal and moves all extremities Psych Speech and movement: Normal speech and movement present Results AMB Urinalysis, Automated UA Leukoctes 0 Jeff/uL Last Edit by Dana Melendez CMA on 04/07/25 07:40 UA Nitrite Negative Last Edit by Dana Melendez CMA on 04/07/25 07:40 UA Urobilinogen 0.2 mg/dL Last Edit by Dana Melendez CMA on 04/07/25 07:40 UA Protein 0 mg/dL Last Edit by Dana Melendez CMA on 04/07/25 07:40 UA pH 6.0 Last Edit by Dana Melendez CMA on 04/07/25 07:40 UA Blood 80 Enrique/uL Last Edit by Dana Melendez CMA on 04/07/25 07:40 UA Specific [place] 1.020 Last Edit by Dana Melendez CMA on 04/07/25 07:40 UA Ketone Negative Last Edit by Dana Melendez CMA on 04/07/25 07:40 UA Bilirubin 0 mg/dL Last Edit by Dana Melendez CMA on 04/07/25 07:40 UA Glucose 0 mg/dL Last Edit by Dana Melendez CMA on 04/07/25 07:40 Assessment & Plan Assessment & Plan (1) Hematuria: Code(s): R31.9 - Hematuria, unspecified Plan: Gross Hematuria ? single episode Differential includes: urinary tract infection, Nephrolithiasis, benign prostatic pathology, malignancy (bladder, renal), trauma, or transient idiopathic hematuria Requires urologic evaluation given gross hematuria despite single episode. Urinalysis Negative for JEFF, NIT but positive for Blood. Will Send Urine for C&S Recommended Expedited follow-up with Urology (Dr. Liz) for further evaluation of gross hematuria. Patient advised not to wait until scheduled 07/2025 appointment. Instructed to go to ED if heavy bleeding, clots, inability to urinate, worsening pain, or systemic symptoms develop. Orders: Orders AMB Urinalysis Automated Today Z13.9 - Encounter for screening, unspecified UA CC w/rflx Micro + Cult Today R31.9 - Hematuria, unspecified Coding Level of Care Code Est Pt Level 4 (82138) Diagnoses Hematuria R31.9 Time Spent (min) 20
== END 2025-04-07 08:19 | disposition home or self-care (01) ==
PROVIDERS: PCP Internal Medicine; Visit Provider Nurse Practitioner Family
DX: Z13.9 Encounter for screening, unspecified (principal); R31.9 Hematuria, unspecified

== ENCOUNTER 2025-04-07 07:15 | Outpatient (REF) | payer BC, SELFPAY ==
--- NOTE | ~2025-04-07 | XR_ITS ---
EXAMINATION: XR ABDOMEN 1 VIEW (KUB) HISTORY: R31.9 - Hematuria, unspecified COMPARISON: There are no prior studies available for comparison. FINDINGS: Two supine views of the abdomen are submitted. The bowel gas pattern is unremarkable, without evidence of mechanical obstruction. No abnormal calcifications are identified. There are no abnormal soft tissue masses. The bones are intact. XR/XR KUB IMPRESSION: No suspicious calcifications are identified. Electronically signed by: Zeb Garcia MD 04/07/2025 10:49 AM TAVIA
== END 2025-04-07 07:16 | disposition home or self-care (01) ==
LOC: HO.LAB 07:15
PROVIDERS: Absent Provider Urology; PCP Internal Medicine
DX: R31.9 Hematuria, unspecified (principal)
CPT/HCPCS: 74018; 81003

== ENCOUNTER → 2025-04-07 10:19 | Outpatient (BNV) | payer BC, SELFPAY | PROVIDERS: Absent Provider Urology; PCP Internal Medicine; Visit Provider Radiology Diagnostic Radiology | DX: R31.9 Hematuria, unspecified (principal) | CPT/HCPCS: 74018 ==

== ENCOUNTER 2025-04-07 10:35 | Outpatient (REF) | payer BC, SELFPAY | END 2025-04-07 10:36 | disposition home or self-care (01) | LOC: HO.LNP 10:35 | PROVIDERS: Visit Provider Nurse Practitioner Family | DX: N30.91 Cystitis, unspecified with hematuria (principal) | CPT/HCPCS: 87086 ==

== ENCOUNTER 2025-04-11 06:01 | Outpatient (REF) | payer BC, SELFPAY ==
--- OUTSIDE RECORDS SUMMARY | 2024-05-25 11:00 | XMS_ITS ---
Author Organization [facility] Address [address] [place] [address] Care Team Providers Care Scheduling Analyst Name Role Phone Chichi Ngo MD Primary Care Provider UnavailMaddy Mattson [phone] Berry Encounters Encounter Location Date [facility] [address] [place] [phone] 05/25/2024 Maddy Muhammad Plan Of Treatment No Information Progress Notes * Anupam BARTLETT ADOB:1975 (49 yo M)Acc No.[id number]:05/25/2024 Progress Notes Patient: Anupam RODRIGUEZ Provider: Oumar Muhammad DPM :1975 A ge:49 Y S ex:Male Date:05/25/2024 Address:[address] [phone] Pcp:Chichi Ngo MD Subjective: * Chief Complaints: * [address] Berry[address] * Medical History: Objective: * Vitals: Assessment: Plan: * Treatment: * Images: * The named appointment provid er may or may not be the originator of this progress note, and it is not deemed complete until electronically signed by the appointment provider. Sign off status: Pending * Provider: Oumar Muhammad DPM Date: 0 05/25/2024 Generated for Lisa arnold/Jorge/Festus on: 1 06/12/2024 06:04 AM EST
--- OUTSIDE RECORDS SUMMARY | 2025-04-11 06:04 | XMS_ITS | Patient Health Record ---
[facility] Address [address] [place] [address] Care Team Providers Care Sheep Farmer Name Role Phone Chichi Ngo MD Primary Care Provider UnavailMaddy Mattson Unavailable [phone] Robbi Winkler Unavailable [phone] Allergies Allergen (clinical drug ingredient) Drug/Non Drug [...] Referring Provider Last Name Jeni [facility] Referred Provider Robbi Winkler Referred Address [address] ,[place], [place],[address], Referred Provider Specialty Podiatry Referral Priority Routine [...] Notes Problem Juvenile osteochondrosis of the foot (849215363) 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 Problem Plantar fasciitis of left foot (19585021503307486) Plantar fasciitis of left foot (M72.2) Active confirmed Problem Interstitial myositis (62675364) 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) Active confirmed Vital Signs Blood pressure diastolic 60 mm Hg 07/13/2024 Height 6 ft 1 in in 07/13/2024 Blood pressure systolic 120 mm Hg 07/13/2024 Weight 190 lbs 07/13/2024 BMI 25.06 kg/m2 07/13/2024 Encounters Encounter Location Date Provider Diagnosis [facility] [address] [address] 07/13/2024 Robbi Cathi Pain in left foot M79.672 ; Plantar fasciitis of left foot M72.2 ; Calcaneal spur, left foot M77.32 ; Interstitial myositis of left foot M60.172 and Bursitis of left foot M77.52 [facility] [address] [address] 07/13/2024 Maddy Muhammad Assessments Encounter Date Diagnosis [...] foot (ICD-10 - M77.52) Plan Of Treatment Pending Test Test Name Order Date X ray : Foot, left 3V 04/08/2024 Insurance Providers Payer Name Payer Address Payer Phone Subscriber Number Group Number Insured Name Patient Relationship to Insured Coverage Start Date Coverage End Date [facility] [address] [place] [address] [id number] Anupam Bartlett Self - patient is the insured Medical (General) History Medical History History ICD Code Hypertension Reflux ( GERD) Thyroid disorder Warts Chicken pox Back,Hip,and Knee pain Headaches/Migraines Surgical History Surgery Date(Month/Year) colonoscopy appendectomy endoscopy
[2025-04-11 10:03] LABS: MANUAL DIFF FLAG NO
[2025-04-11 10:16] LABS: Hematocrit 40.7 % (42.0-52.0); Hemoglobin 13.5 g/dl (14.0-18.0); Imm Gran Abs Auto 0.01 X10*3/uL (0.00-0.03); Imm Gran Pct Auto 0.3 % (0.0-0.4); Lymphocytes Absolute Auto 1.5 X10*3/uL (1.2-4.9); Mean Corpuscular HGB Conc 33.2 g/dl (31.0-36.0); Mean Corpuscular Hemoglobin 30.1 pg (27.0-33.0); Mean Corpuscular Volume 90.6 fL (80.0-98.0); NRBC Abs Auto 0.000 X10*3/uL (0.0-0.012); NRBC Pct Auto 0.0 /100WBC (0.0-0.2); Platelet Count 193 X10*3/uL (160-400); Red Blood Count 4.49 X10*6/uL (4.60-5.80); White Blood Count 3.8 X10*3/uL (4.8-10.8)
[2025-04-11 10:48] LABS: Alanine Aminotransferase 24 U/L (0-40); Albumin Level 4.6 g/dL (3.5-5.0); Alkaline Phosphatase 59 U/L (39-117); Anion Gap 12 (12-20); Aspartate Amino Transferase 30 U/L (5-37); Blood Urea Nitrogen 17 mg/dL (9-16); Calcium 10.2 mg/dL (8.4-10.2); Carbon Dioxide 25 mmol/L (22-29); Chloride 110 mmol/L (96-108); Estimated Glomerular Filt Rate > 60; Potassium 4.7 mmol/L (3.3-5.1); Sodium 142 mmol/L (135-145); Total Protein 6.8 g/dL (6.5-8.0)
== END 2025-04-11 06:02 | disposition home or self-care (01) ==
LOC: HO.HMGCLDS 06:01
PROVIDERS: PCP Internal Medicine; Visit Provider Internal Medicine
DX: D64.9 Anemia, unspecified (principal)
CPT/HCPCS: 36415; 80053; 84443; 85025

== ENCOUNTER 2025-04-18 09:21 | Outpatient (AMB) | payer BC, SELFPAY ==
--- OUTSIDE RECORDS SUMMARY | 2024-05-25 11:00 | XMS_ITS ---
Author Organization [facility] Address [address] [place] [address] Care Team Providers Care Dsp Engineer Name Role Phone Chichi Ngo MD Primary Care Provider UnavailMaddy Mattson [phone] Berry Encounters Encounter Location Date [facility] [address] [place] [phone] 05/25/2024 Maddy Muhammad Plan Of Treatment No Information Progress Notes * Anupam BARTLETT ADOB:1975 (49 yo M)Acc No.[id number]:05/25/2024 Progress Notes Patient: Anupam RODRIGUEZ Provider: Oumar [...] 05/25/2024 Generated for Lisa arnold/Jorge/Festus on: 1 09:49 AM EST
--- NOTE | 2025-04-18 09:24 | A.OFFPC_ITS ---
Vital Signs 04/18/25 09:27 Height 6 ft 1 in Weight 202 lb BMI 26.6 BP 114/78 Blood Pressure Location Lt brachial Position Sitting Respiration 16 Pulse 61 Pulse Source Pulse Oximeter Pulse Oximetry (%) 98 Oxygen Delivery Method Room Air Intake Visit Reasons: 6 month follow up Intake Note: Pt is here today for 6 months follow up visit. Allergies valsartan Allergy (Unknown, Verified 04/18/25 09:29) headache Medication List - Last Reconciled 04/18/25 by Chichi Ngo MD amlodipine 10 mg PO DAILY folic acid 0.8 mg PO DAILY levothyroxine 112 mcg PO DAILY tadalafil 5 mg PO DAILY 90 days Tobacco use date assessed: 04/18/25 Dental Screening Dental Screen Date: 07/02/24 HPI 6 month follow up HPI Details Patient presents for the follow-up on hypertension and hypothyroidism stable on current medications. He had an episode of gross painless hematuria 10 days ago. Patient was seen in walk in had KUB which was negative. Patient denies history of nephrolithiasis or flank pain dysuria. [facility] Medical History (Updated 04/18/25 @ 10:12 by Chichi Ngo MD) Anemia Hematuria Urinary retention Increased frequency of urination Right calf pain Annual physical exam HTN (hypertension) Hypothyroid H/O exercise stress test GERD (gastroesophageal reflux disease) Nadya's disease Surgical History Hx of appendectomy Hx of esophagogastroduodenoscopy Hx of colonoscopy Family History Father No problems noted. Mother No problems noted. 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 Housing: House Patient Tobacco Use Status: Former Tobacco user e-Cigarette/Vaping Use: Never Used Second Hand Smoke Exposure: No service: No Current occupational status: employed Cognitive needs: No Hearing needs: No Vision needs: Yes Questionnaire Thrive Questionnaire Date Thrive assessed: 10/06/24 I am a: Patient What is your living situation today?: I have a steady place to live Within the past 12 months, did the food you bought not last and you didn't have the money to get more?: Never true Within the past 12 months, did you worry whether your food would run out before you got money to buy more?: Never true Do you have trouble paying for medicines?: No Do you have trouble getting transportation to medical appointments?: No Do you have trouble paying your heating and electricity bill?: No Do you have trouble taking care of your child, family member or friend?: No Do you have trouble with day-to-day activities such as bathing, preparing meals, shopping, managing finances, etc.?: No Are you currently unemployed and looking for a job?: No Are you interested in more education?: No Currently or been in a relationship where the following occur: No concerns reported THRIVE Score: 0 YIN-7 AMB Questionnaire YIN-7 Date YIN - 7 assessed: 10/13/24 Source: Developed by Drs. Zeb Ledesma, Aicha Freeman, Jad Irving and colleagues, with an educational di from [employer]. Review of Systems Const All systems reviewed & are unremarkable except as noted in HPI and below Card Reports no additional complaints Resp Reports no additional complaints GI Reports no additional complaints Reports no additional complaints Physical exam (Primary Care) Vital Signs: Last Vital Signs Pulse 61 04/18/25 09:27 Resp 16 04/18/25 09:27 BP 114/78 04/18/25 09:27 Pulse Ox 98 04/18/25 09:27 Oxygen Delivery Method Room Air 04/18/25 09:27 BMI result Body Mass Index 26.6 Tobacco/Smoking Status: Tobacco use Status Tobacco use date assessed 04/18/25 04/18/25 09:32 Patient Tobacco Use Status Former Tobacco user 04/18/25 09:24 e-Cigarette/Vaping Use Never Used 04/18/25 09:24 Thrive Assessment: Date of Thrive Assessment Date Thrive assessed 10/06/24 04/18/25 09:24 Currently or been in a relationship where the following occur: No concerns reported Const General: no acute distress Resp Effort & Inspection: normal respiratory effort Auscultation: clear to auscultation bilaterally Cardio Rhythm: regular rhythm Heart sounds: S1 normal heart sound present and S2 normal heart sound present GI Inspection: Yes normal to inspection Palpation (GI): Soft to palpation Percussion: Yes normal to percussion Auscultation: normal bowel sounds General: Yes no CVA tenderness Back/Spine/Pelvis Back: no CVA tenderness Coding Level of Care Code Est Pt Level 4 (65267) Diagnoses Hematuria R31.9 HTN (hypertension) I10 Hypothyroid E03.9 Assessment & Plan Assessment & Plan (1) Hematuria: Code(s): R31.9 - Hematuria, unspecified Category: Medical Plan: For episode of gross hematuria renal ultrasound will be obtained. Patient has a follow-up appointment with Urology in July (2) HTN (hypertension): Code(s): I10 - Essential (primary) hypertension Category: Medical Plan: Continue current medication (3) Hypothyroid: Code(s): E03.9 - Hypothyroidism, unspecified Category: Medical Plan: Continue levothyroxine Orders: Orders US renal BI Today R31.9 - Hematuria, unspecified Lipid Panel 6 Months D64.9 - Anemia, unspecified, E03.9 - Hypothyroidism, unspecified, I10 - Essential (primary) hypertension Complete Blood Count Auto Diff 6 Months D64.9 - Anemia, unspecified, E03.9 - Hypothyroidism, unspecified, I10 - Essential (primary) hypertension UA w Microscopic 6 Months D64.9 - Anemia, unspecified, E03.9 - Hypothyroidism, unspecified, I10 - Essential (primary) hypertension Vitamin B12 and Folate 6 Months D64.9 - Anemia, unspecified, E03.9 - Hypothyroidism, unspecified, I10 - Essential (primary) hypertension Methylmalonic Acid 6 Months D64.9 - Anemia, unspecified, E03.9 - Hypothyroidism, unspecified, I10 - Essential (primary) hypertension TSH reflex Free T4 6 Months E03.9 - Hypothyroidism, unspecified UA w Microscopic Today I10 - Essential (primary) hypertension Comprehensive Met. Panel 6 Months D64.9 - Anemia, unspecified, E03.9 - Hypothyroidism, unspecified, I10 - Essential (primary) hypertension
[2025-04-18 09:27] VITALS: BP 114/78; PULSE 61; RESP 16; O2SAT 98; BMI 26.6
--- OUTSIDE RECORDS SUMMARY | 2025-04-18 09:50 | XMS_ITS | Patient Health Record ---
Author Organization [facility] Nune[facility] Address [address] [facility] [place] [address] Care Team Providers Care Tip Mender Name Role Phone Chichi Ngo MD Primary Care Provider UnavailMaddy Mattson Unavailable [phone] Robbi Winkler Unavailable [phone] Allergies Allergen (clinical drug ingredient) Drug/Non Drug [...] Referring Provider Last Name Jeni Referred Organization [facility] Enrique Referred Provider Robbi Winkler Referred Address [address] ,[place], [place],[address], Referred Provider Specialty Podiatry Referral Priority Routine [...] Notes 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 Problem Plantar fasciitis of left foot ([id number]) Plantar fasciitis of left foot (M72.2) Active confirmed Problem Interstitial myositis (80433191) 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) Active confirmed Vital Signs Blood pressure diastolic 60 mm Hg 07/13/2024 Height 6 ft 1 in in 07/13/2024 Blood pressure systolic 120 mm Hg 07/13/2024 Weight 190 lbs 07/13/2024 BMI 25.06 kg/m2 07/13/2024 Encounters Encounter Location Date Provider Diagnosis [facility] [address] [address] 07/13/2024 Robbi Cathi Pain in left foot M79.672 ; Plantar fasciitis of left foot M72.2 ; Calcaneal spur, left foot M77.32 ; Interstitial myositis of left foot M60.172 and Bursitis of left foot M77.52 [facility] [address] [address] 07/13/2024 Maddy Muhammad Assessments Encounter Date Diagnosis [...] Insured Coverage Start Date Coverage End Date [facility] [place] [address] [place] [address] [id number] Anupam Bartlett Self - patient is the insured Medical (General) History Medical History History ICD Code Hypertension Reflux ( GERD) Thyroid disorder Warts Chicken pox Back,Hip,and Knee pain Headaches/Migraines Surgical History Surgery Date(Month/Year) colonoscopy appendectomy endoscopy
== END 2025-04-18 10:13 | disposition home or self-care (01) ==
LOC: HO.HMCC 09:22
PROVIDERS: PCP Internal Medicine; Visit Provider Internal Medicine
DX: R31.9 Hematuria, unspecified (principal); I10 Essential (primary) hypertension; E03.9 Hypothyroidism, unspecified